=== PATIENT | male | born 1940 | race Caucasian/White ===

== ENCOUNTER → 2019-03-21 09:21 | Outpatient (BNVA) | payer MEDICARE, BC, SELFPAY | PROVIDERS: PCP Physician Assistant; Referring Provider Physician Assistant; Visit Provider Student in an Organized Health Care Education/Training Program | DX: M16.11 Unilateral primary osteoarthritis, right hip (principal); M16.12 Unilateral primary osteoarthritis, left hip | CPT/HCPCS: 99203 ==

== ENCOUNTER → 2019-05-19 08:59 | Outpatient (BNVA) | payer MEDICARE, BC, SELFPAY | PROVIDERS: PCP Physician Assistant; Referring Provider Physician Assistant; Visit Provider Student in an Organized Health Care Education/Training Program | DX: M16.11 Unilateral primary osteoarthritis, right hip (principal); M16.12 Unilateral primary osteoarthritis, left hip | CPT/HCPCS: 99213 ==

== ENCOUNTER → 2019-10-10 14:16 | Outpatient (BNVA) | payer MEDICARE, BC, SELFPAY | PROVIDERS: PCP Physician Assistant; Referring Provider Physician Assistant; Visit Provider Surgery | DX: K40.90 Unilateral inguinal hernia, without obstruction or gangrene, not specified as recurrent (principal) | CPT/HCPCS: 99203; 99213 ==

== ENCOUNTER 2019-10-21 00:39 | Outpatient (CLI) | payer MEDICARE, BC, SELFPAY ==
[2019-10-21 12:11] LABS: HCT 43.4 % (40.0-50.0); HGB 14.5 g/dL (13.5-17.5); Mean Corp. HGB Concentration 33.4 g/dL (32.0-36.0); Mean Corpuscular Hemoglobin 34.2 pg (27.0-33.0); Mean Corpuscular Volume 102.4 fL (80-95); Mean Platelet Volume 9.6 fL (8.0-11.0); Platelet Count 225 x1000/uL (130-400); RBC 4.24 m/cumm (4.50-6.00); RBC Distribution Width 13.8 % (11.8-14.1); White Blood Cell Count 8.14 k/cumm (4.4-10.8)
[2019-10-21 13:04] LABS: Anion Gap 9.4 mmol/L (3-11); BUN 22 mg/dL (7-18); CO2 23.6 mmol/L (21.0-32.0); CREATININE 0.91 mg/dL (0.70-1.30); Calcium 8.6 mg/dL (8.5-10.1); Chloride 106 mmol/L (98-107); Glucose 95 mg/dL (74-106); Potassium 4.3 mmol/L (3.5-5.1); Sodium 139 mmol/L (136-145)
== END 2019-10-21 00:59 ==
PROVIDERS: PCP Physician Assistant; Visit Provider Student in an Organized Health Care Education/Training Program
DX: M25.551 Pain in right hip (principal); M16.11 Unilateral primary osteoarthritis, right hip; Z01.818 Encounter for other preprocedural examination; Z01.812 Encounter for preprocedural laboratory examination
CPT/HCPCS: 36415; 80048; 85027; 86850; 86900; 86901

== ENCOUNTER 2019-10-21 11:41 | Outpatient (CLI) | payer MEDICARE, BC, SELFPAY ==
--- NOTE | 2019-10-21 10:30 | DI.RAD_ITS ---
EXAM: XR PELVIS AP CLINICAL HISTORY: preoperative planning TECHNIQUE: COMPARISON: No exams were available for comparison FINDINGS: Single AP view of the pelvis with marker ball was obtained. There are severe degenerative changes of both hips with marked loss of the cartilaginous joint spaces bilaterally, right greater than left, m arked subchondral sclerosis and cyst formation noted involving the acetabula and femoral heads, right greater than left. Prominent hypertrophic spurring of the acetabula and femoral heads by bilaterall y. IMPRESSION: Severe DJD both hips, right greater than left.
== END 2019-10-21 12:01 ==
PROVIDERS: PCP Physician Assistant; Referring Provider Physician Assistant; Visit Provider Physician Assistant
DX: M16.0 Bilateral primary osteoarthritis of hip (principal); Z01.818 Encounter for other preprocedural examination
CPT/HCPCS: 36415; 80048; 85027; 86850; 86900; 86901; 72170

== ENCOUNTER 2019-10-28 07:27 | Outpatient (CLI) | payer MEDICARE, BC, SELFPAY ==
[2019-10-28 19:27] LABS: COVID-19 RT-PCR UVMMC Result Negative (Negative)
== END 2019-10-28 07:47 ==
PROVIDERS: PCP Physician Assistant Medical; Visit Provider Student in an Organized Health Care Education/Training Program
DX: Z01.818 Encounter for other preprocedural examination (principal); Z03.818 Encounter for observation for suspected exposure to other biological agents ruled out
CPT/HCPCS: U0003

== ENCOUNTER 2019-11-01 06:05 | Observation (INO) | payer MEDICARE, BC, SELFPAY ==
[2019-11-01] VITALS (11 sets, daily range): BP systolic 94–154; BP diastolic 2–90; PULSE 51–80; RESP 12–19; TEMP 36.3–37.1; O2SAT 94–99
[2019-11-01] MEDS: Acetaminophen 500 MG TAB 1000 MG PO ×2 (06:32→13:08)
[2019-11-01] MEDS: Lactated Ringers 1,000 ML 80 ML IV ×2 (06:32→13:08)
[2019-11-01] MEDS: Celecoxib 200 MG CAP 400 MG PO (06:33)
--- NOTE | 2019-11-01 07:00 | DI.RAD_ITS ---
EXAM: XR HIP RT IN OR CLINICAL HISTORY: Degenerative joint disease of right hip. TECHNIQUE: 2D digital imaging was performed. COMPARISON: No exams were available for comparison FINDINGS: Fluoroscopy was provided in the OR for Dr. Tao. Hard copy images show placement of a right hip prosthesis. The alignment appears satisfactory. Fluoro time: 0.30 sec DATA REPOSITORY: RADIATION DOSE DELIVERED:
--- NOTE | 2019-11-01 07:29 | DSE_ITS ---
Date of service: 11/01/19 Time of Service: 13:52 DS: Diagnosis Discharge Diagnosis (1) Degenerative joint disease of right hip: Status: Chronic Discharge Plan Disposition Patient Disposition: HOME Condition: Good Discharge Details Reason For Visit: Right Hip DJD Admit Date/Time: 11/01/19 06:05 Admit Provider: Cayetano Tao Attending Provider: Cayetano Tao Primary Care Provider: Uriah Sanders Hospital Course Hospital Course: Patient was admitted to the medical/surgical floor following the procedure. The surgery was tolerated well without any notable medical, surgical, or anesthetic complications. Mobilization began postoperatively. He was voiding spontaneously. Vitals were stable. Physical therapy worked with the patient and was cleared for discharge home. No acute medical issues. Pain was controlled on oral regimen. Home Meds and New Rx's Prescriptions: New celecoxib 200 mg capsule 200 mg PO BID PRN (Reason: pain) Qty: 60 RF: 1 aspirin 81 mg tablet,delayed release (DR/EC) 81 mg PO BID Qty: 60 RF: 0 acetaminophen 500 mg tablet 1,000 mg PO Q8H PRN (Reason: pain) Qty: 90 RF: 3 pantoprazole 40 mg tablet,delayed release (DR/EC) 40 mg PO DAILY Qty: 30 RF: 0 oxycodone 5 mg tablet 5 mg PO Q6H PRN PRNQty: 12 RF: 0 Continued cholecalciferol (vitamin D3) 1,000 unit capsule 1,000 unit PO DAILY RF: 0 diclofenac sodium [Voltaren] 1 % Gel See Rx Instructions .ROUTE .COMPLEX RF: 0 Discontinued prednisone 5 mg tablet 5 mg PO DAILY Qty: 30 RF: 0 Discharge Instructions Additional Instructions: Dr. Tao's Total Hip Discharge Instructions Activity: The most important activity is to walk. You should try to take short walks a few times a day. You have no restrictions on movement or positioning, but do not try to force what you do. You will find some stiffness and weakness with hip flexion (lifting your knee). Do not try to strengthen this too early, continue to practice walking and stairs and this will come. - Outpatient physical therapy can be helpful to help return you to a normal gait and improve your flexibility and strength. This can start around 2 weeks. For most patients, it?s not necessary. Usually this is determined at the time of discharge or at the first post-operative visit. - You should wear the JESUS hose on both legs for 2 weeks. You may remove those at night. These prevent blood pooling and swelling. Dressing: Keep the surgical dressing in place for at least one week, although it may stay in place untill follow-up. It may get wet after 3 days but avoid soaking the dressing. If it gets wet, just lightly pat dry. Most people prefer to cover the dressing with some ClingWrap, Saran Wrap, to keep it dry. After the first week it may be removed if desired and then replaced with light gauze and tape or nothing. It is important to always keep some gauze or the dressing between skin folds, especially when you are sitting, so the incision is not folded over on itself at the belly fold. Medications: - You should take Tylenol and an anti-inflammatory Celebrex as your primary pain control medications. If the Celebrex is not covered or too expensive you may use Ibuprofen 600mg every 8 hours. - You have been prescribed a stronger pain medication Oxycodone for breakthrough pain, take as needed as prescribed. - You have also been prescribed a stomach acid reduction agent Pantoprozole to help reduce stomach acid and reflux. - You will be taking Aspirin 81mg twice a day for DVT prevention unless instructed otherwise. - If you have constipation you should take Colace or Miralax (both [id number]). It takes most people 3-4 days to have a bowel movement. Follow-up: 2 weeks. If you have any acute concerns or questions, please do not hesitate to contact the office at [phone]. You may contact Dr. Tao with any questions after hours through the hospital at [phone] or on his cell phone at [phone]. Referrals: Cayetano Tao MD [ [facility] STAFF PHYSICIAN] - Activity:: Activity as Tolerated Equipment/Supplies:: Walker Diet:: As Tolerated Discharge Orders Discharge Orders: Discharge Order (Routine); Ordered 11/01/19 Ordered By: Cayetano Tao DS: Summary Status at Discharge Functional status at discharge: uses cane/walker Overall status at discharge: patient is progressing back to baseline Mental Status: mental status grossly normal Speech and Movement: speech and movement normal Mood: congruent mood Affect: normal affect Exam Psych Mental Status: mental status grossly normal Speech and Movement: speech and movement normal Mood: congruent mood Affect: normal affect DS: Data Vitals/I&O Vitals and I&O: Vital Signs Temperature 36.7 C 11/01/19 06:05 Pulse 80 11/01/19 06:05 Pulse Rhythm Regular 11/01/19 06:05 Respiratory Rate 18 11/01/19 06:05 Respiratory Effort 11/01/19 06:05 Blood Pressure 154/85 H 11/01/19 06:05 Pulse Oximetry 98 11/01/19 06:05 Oxygen Delivery Method Room Air 11/01/19 06:05 Oxygen Flow Rate 0 11/01/19 06:05 Intake & Output 10/31/19 10/31/19 11/01/19 11:59 23:59 11:59 Weight 72.6 kg [facility] Medical History Chronic low back pain (Acute) Degenerative joint disease of left hip (Acute) Degenerative joint disease of right hip (Chronic) Generalized anxiety disorder (Acute) History of inguinal hernia (Acute) History of supraventricular tachycardia (Acute) As per Dr. Yadav note on 10/04/19 - he is not sure where this diagnosis came from Macrocytosis (Acute) Palpitations (Acute) As per note by Dr. 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
[2019-11-01] MEDS: ceFAZolin 2 GM/50 ML BAG IVPB (07:33)
[2019-11-01] MEDS: Bupivacaine 0.25% Pres-Free 30 ML VIAL (08:35)
[2019-11-01] MEDS: Ketorolac 30 MG/ML VIAL (08:37)
--- NOTE | 2019-11-01 10:24 | W.PM.OP ---
Date of service: 11/01/19 Time of Service: 09:24 Operative Note Operative Note DATE OF PROCEDURE: 11/01/19 PRE-OP DIAGNOSIS: Right Hip Osteoarthritis POST-OP DIAGNOSIS: same PROCEDURE: Right Anterior Total Hip Arthroplasty SURGEON: Cayetano Tao CUPOLA CHARGER INSULATION: Cari Rubin ANESTHESIA: spinal ESTIMATED BLOOD LOSS: 400 PATHOLOGY: none sent TOURNIQUET TIME: 0 COMPLICATIONS: None Patient was transported to: PACU Patient's condition: stable Implants: 1. Depuy [place] Acetabular Component, 54mm 2. Depuy Acetabular Liner, [id number] 3. Depuy Corail Coxa Vara Femoral Stem, Size 11 4. Depuy Altrx Ceramic Femoral Head, Size 36+1.5mm Indications: I have seen Kevin in clinic for symptoms of hip arthritis, confirmed with radiographic findings. Kevin has exhausted nonoperative methods and was having significant limitations in daily function and desired better function and less pain. I discussed the technical details of a hip replacement. I explained the risks of the procedure to include, but not limited to, bleeding, infection, pain, stiffness, fracture, damage to nerves and vessels, damage to muscles and tendons, loosening, instability, leg length inequality, need for repeat procedure, blood clot and cardiopulmonary demise. Despite these risks, he elected to proceed. Findings: There was significant signs of arthritis throughout the hip. Large osteophytes were present around the femoral neck. Procedure Description: Kevin was greeted in the preoperative holding area where the correct side was identified and marked. The consent was reviewed with the patient and signed. The history and physical was updated. All questions were answered. He was taken back to the operating room. A spinal anesthestic was then administered. The patient was placed into the supine position on the operating room table. The patient was then positioned onto the ARCH table. Both feet were wrapped with Webrill cotton wrap along with Coban. The feet were placed in specialized boots for the ARCH table, well seated within the boot and secured. SCDs were applied. The patient was then slid down onto a peroneal post and the nonoperative leg was secured in a leg malave attached to the table. The operative side was placed into the ARCH table attachment and bed height and positioning was secured. A preoperative AP pelvis was obtained to serve as a reference for determining leg lengths. Prophylactic antibiotics in the form of Cefazolin were administered. 1g of Tranxemic Acid was given intravenously within 30 minutes of incision. The right leg was then prepped with Chloraprep and draped in a standard fashion. A second prep with Chloraprep was performed prior to placement of a shower-curtain type drape with Iodine impregnated skin protection. A timeout to confirm correct identity, side and site, procedure, allergies, anesthesia, and medical concerns was performed. An obliquely oriented incision was made starting lateral to the ASIS and running distal over the Tensor Fascia Savi (TFL) muscle belly toward the fibular head, approximately 10cm. The skin and soft tissue was dissected sharply, through James?s fascia, and to the fascia of the TFL. With the fascia and superior border of the IT band identified, the fascia was incised with a new knife just above any perforators from the IT band. The TFL muscle belly was bluntly dissected away from the fascia and moved laterally. The fat between TFL and rectus was identified to ensure the dissection was not within the TFL. Blunt dissection created space between abductors and the capsule and retractor was placed over the lateral femoral neck. The fibers of the rectus femoris tendon were identified and these were freed from the anterior capsule. A second cobra retractor was placed around the medial femoral neck. The TFL was further retracted laterally to show the deep fascia. Careful dissection through this layer identified three main crossing vessels of the lateral femoral circumflex. These were cauterized in multiple locations and then cut without any noticeable bleeding. The TFL was further released bluntly from the deep fascia to expose anterior hip capsule and fat The Bal orthopaedic retractor was then placed beneath the TFL and against sartorius and medial soft tissues to protect and retract the soft tissues. A T-capsulotomy was then performed starting at the superior lateral acetabulum and moving distally to the intertrochanteric ridge. These capsular flaps were tagged with a No. 1 Ethibond and elevated from within. The capsular flaps were released to the shoulder of the lateral neck and to the lesser trochanter to give excellent visualization of the proximal femur. A neck osteotomy was performed using an oscillating saw based on preoperative templates. This cut started in the shoulder and of the lateral neck and exited medially. The saw was at all times directed medially to avoid injury to the greater trochanter. 6cm of traction was applied to the leg and the osteotomy opened. The femoral head was removed with a corkscrew, making sure to protect the TFL on its exit. This was measured on the back table to determing the starting reamer size. Portions of the rectus obscuring visualization were minimally elevated off the superior acetabulum. An anterior retractor was placed over the anterior wall between capsule and labrum and attached to the Gripper retraction system. A posterior retractor was placed similarly. This provided excellent visualization. The contents of the cotyloid fossa were removed with electrocautery and the labrum was removed with a knife. There was significant chondromalacia of the superior acetabulum. Acetabular reaming began with a 50mm reamer. This first reaming was directed anterior to posterior and medial to get down to the true floor. This was inspected and reamed until the true floor was reached. The anterior retractor was then released and entry and exit was provided by traction on the capsular flaps. I then reamed sequentially up to a 54mm reamer where good fit was obtained. The larger reamers were oriented based on anatomical reference of the anterior and lateral barclay to ensure proper abduction and anteversion. Positioning and size was confirmed with the fluoroscopy. A 54mm Depuy [place] acetabular component was selected. The deep tissues were irrigated. The acetabular component was then impacted in a position of about 40-45 degrees of abduction and 15-20 degrees of anteversion, using the patient?s anatomy as the ultimate landmark. Fluoroscopy was used to confirm this. There was excellent woodwind instrument repairer of the acetabular component and the inserting handle was removed. The acetabular liner, Depuy [id number] polyethylene liner, was inserted and lined up with the tines of the acetabular component. There was no soft tissue interposition. The liner was then impacted into position and confirmed to be well-seated. A portion of the amos-articular cocktail was then injected around the acetabulum into the capsule and periosteum. This cocktail consisted of 50cc of 0.25% Bupivicaine and 20cc of Exparel, expanded to a total of 120cc. Traction was released from the femur. The leg was rotated to 120 degrees. Any remaining medial capsule was released until the lesser trochanter was easily palpable. A Fairchild retractor was placed medially. The lateral capsule was further released into the shoulder to allow access to the greater trochanter. A Fairchild retractor was placed over the greater trochanter which allowed the trochanter to flip in front of the capsule for excellent exposure. The leg was brought down into maximal extension and 20 degrees of adduction while ensuring there was no impingement on the acetabulum. Any remnant capsule within the trochanter was released. Piriformis and obturator externis were identified and protected. There was excellent access to the proximal femur. The lateral neck remnant was removed with a rongeur. A blunt canal probe was used to identify the canal and trajectory for later broaching. A box osteotome initiated the broach course. A small curved rasp and a curved curette were used to work laterally. Broaching then began with a size 8 Corail broach. This was inserted manually around the trochanter and into the canal before mallet blows. The broach was seated to a few millimeters below the cut level based on the neck cut and the preoperative template. Sequential broaching was continued with the Codelearnse pneumatic broaching device until a tight fit was obtained with good rotational control of the femur. A trial coxa vara neck was inserted along with a +1.5 trial head. The leg was brought out of extension and adduction and then reduced with traction and internal rotation. The leg was stable anteriorly in a position of 30 degrees of extension and 90 degrees of external rotation. Fluoroscopy was used to ensure there was no fracture and the stem was seated well. Leg lengths were checked with an AP pelvis and pelvic reference points. [employer] navigation system was used to confirm appropriate positioning and leg length and offset. Once content with the desired offset and leg lengths, the leg was brought back into extension, external rotation and adduction. The periosteum and surrounding tissue was injected with remaining portion of the amos-articular cocktail. The proximal femur was irrigated as well as the deep tissues. The Depuy Corail Coxa Vara stem, size 11, was then manually inserted into the proximal femur making sure to control rotation. It was then malleted into position with light blows, giving breaks to allow bone expansion and decrease risk of fracture. The selected Depuy Altrx Ceramic Head, size 36+1.5mm, was then placed onto the clean and dry trunnion and secured with impaction onto the tapered fit. The leg was brought back out of extension and adduction and reduced with traction and internal rotation. Stability was confirmed with no shuck at 90 degrees of external rotation and 30 degrees of extension. No impingement through range of motion arc. Final x-ray images were obtained with fluoroscopy to confirm adequate positioning and no intraoperative fracture. The deep tissues were thoroughly irrigated with Irrisept chlorhexadine solution. The second dose of TXA 1g was administered intravenously.The capsule was then reapproximated with the previously placed Ethibond sutures. The TFL fascia was finally closed with a No. 2 Stratafix, barbed suture. Deep tissues were then reapproximated with 0 Vicryl and a running 2-0 Vicryl. The skin was closed with a running 4-0 Monocryl in a subcuticular fashion. This was reinforced with skin glue. A Mepilex silver dressing was applied. At the end of the case, all counts were correct. Kevin was transferred to the hospital bed without difficulty and suffering no apparent complication. Kevin has a good prognosis. Physical therapy will start today and without restrictions, weight-bearing as tolerated. Aspirin 81mg BID will be used for DVT prophylaxis.
--- NOTE | 2019-11-01 11:20 | IN_ITS ---
Date of service: 11/01/19 Time of Service: 10:45 PT Notes Visit Reasons: Right Hip DJD Inpatient Physical Therapy Evaluation Date: 11/01/2019 Referring Doctor: Dr. Tao PT Orders: PT CONSULT: s/p right DOE Precautions: fall, standard Patient Profile/Admitting Diagnosis: Patient admitted s/p right DOE, anterior approach, post op day 0. 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 Yadav note on 10/04/19 - he is not sure where this diagnosis came from Macrocytosis (Acute) Palpitations (Acute) As per note by Dr. Yadav (Cardiology at [facility]) - states palpitations have mostly resolved with lifestyle modifications Raised prostate specific antigen (Acute) Squamous cell carcinoma (Acute) Left upper arm Social History/Home Situation: Patient lives in a single level home with 0 JUAN. He lives with his and their 18 year old son. He is independent at baseline, without use of assistive device. Equipment Owned/DME: none Subjective: Kevin states that he is feeling good. He denies dizziness, and reports good sensation in his leg. He feels ready to get up and try walking. Objective: General Observation: Resting in bed with IV in RUE. No additional lines. Mental Status: A & Ox3 Pain: 0/10 ROM: Right Upper Extremity: WFL Left Upper Extremity: WFL Right Lower Extremity: not assessed due to post-op status Left Lower Extremity:WFL Strength: Right Upper Extremity: WFL Left Upper Extremity: WFL Right Lower Extremity: Patient is able to demonstrates 3/5 or greater quad strength and ankle DF. Left Lower Extremity: Hip flexion 4+/5. Quads 5/5. Ankle DF 4/5. Sensation: intact to light touch distally Bed Mobility/Transfers: supine-sit: supervision sit-stand: CGA stand-sit: CGA Gait: Patient ambulates 6' with FWW and CGA. He requires min A for technique and equipment management. He reports moderate dizziness as he ambulates, but was able to safely transition to chair without any apparent difficulty. Reports resolution of dizziness after seated rest x 1 minute. Deferred on further ambulation at this time. Balance: Static Sitting: Normal Dynamic Sitting: Good Static Standing: Fair Dynamic Standing: Fair Special Tests: Mobility Limitations Standardized Measure [facility] AM-PAC 6 clicks Basic Mobility Inpatient Short Form: Raw Score: 19 CMS Score: 42 % deficit Informed Consent/Education: Patient instructed in purpose of PT consult and plan of care. Assessment: Patient is a 79 year old male referred to physical therapy services with the diagnosis of right DOE, post op day 0. Patient presents with clinical signs and symptoms consistent with post-operative status, as demonstrated by the following impairment level findings: 1. Decreased activity tolerance 2. Decreased RLE strength Impairments are contributing to the following functional limitations: 1. Decreased tolerance to household distance and community ambulation Patient is assessed as Low 60984 complexity based on the following: History: 79 year old male presenting post op day 0 after right DOE. No significant complicating factors. He demonstrated good safety and technique, despite limitations in activity tolerance due to his acute post-op status. Examination: functional limitations as noted above Presentation: stable Decision Making: low complexity Goals: Goals X1 week 1. Supine-Sit : supervision 2. Sit-Supine: supervision 3. Sit-Stand : supervision 4. Stand-Sit : supervision 5. Bed-Chair : supervision with FWW 6. Chair-Bed: supervision with FWW 7. Gait : supervision with FWW x 75' Plan of Care/Treatment Plan: 1-2x/day, 7 days/week x 1 week. Plan of care has been reviewed with the MANAGER DEVELOPMENT providing the service under Physical Therapy direction. Initiate Physical Therapy intervention for strengthening, bed mobility, transfers, gait, stairs, balance training, use of assistive device. DISCHARGE RECOMMENDATIONS:Home. Will need FWW issued prior to discharge. TREATMENT CODE/TIME: 10:45-11:05 ([id number]) Laura Rodriguez, PT, DPT [facility]
[2019-11-01] MEDS: ceFAZolin 1 GM/50 ML BAG IVPB (13:08)
[2019-11-01] MEDS: Normal Saline Flush 10 ML SYR IV (13:41)
--- NOTE | 2019-11-02 08:47 | PT.INDS ---
Date of service: 11/02/19 Time of Service: 08:47 PT Notes Visit Reasons: Right Hip DJD Date: 11/02/2019 Treatment Date: 11/01/19 Referring Doctor: Dr. Tao PT Orders: PT CONSULT: s/p right DOE Precautions: fall, standard THIS DOCUMENT SERVES A SUMMARY OF CARE. NO PT SERVICES WERE PROVIDED ON THIS DATE. Patient Profile/Admitting Diagnosis: Patient admitted s/p right DOE, anterior approach. He was seen for a single PT session prior to discharge home. 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 Yadav note on 10/04/19 - he is not sure where this diagnosis came from Macrocytosis (Acute) Palpitations (Acute) As per note by Dr. Yadav (Cardiology at [facility]) - states palpitations have mostly resolved with lifestyle modifications Raised prostate specific antigen (Acute) Squamous cell carcinoma (Acute) Left upper arm Social History/Home Situation: Patient lives in a single level home with 0 JUAN. He lives with his and their 18 year old son. He is independent at baseline, without use of assistive device. Equipment Owned/DME: none Subjective: none obtained Objective: ROM: Right Upper Extremity: WFL Left Upper Extremity: WFL Right Lower Extremity: not assessed due to post-op status Left Lower Extremity:WFL Strength: Right Upper Extremity: WFL Left Upper Extremity: WFL Right Lower Extremity: Patient is able to demonstrates 3/5 or greater quad strength and ankle DF. Left Lower Extremity: Hip flexion 4+/5. Quads 5/5. Ankle DF 4/5. Sensation: intact to light touch distally Bed Mobility/Transfers: supine-sit: supervision sit-stand: CGA stand-sit: CGA Gait: Patient ambulated 6' with FWW and CGA. He requires min A for technique and equipment management. He reports moderate dizziness as he ambulates, but was able to safely transition to chair without any apparent difficulty. Reported resolution of dizziness after seated rest x 1 minute. Balance: Static Sitting: Normal Dynamic Sitting: Good Static Standing: Fair Dynamic Standing: Fair Assessment: Patient is a 79 year old male referred to physical therapy services with the diagnosis of right DOE. He was seen for 1 PT session for gait training, and demonstrated good safety and mobility. He was able to be discharged home after PT session, and will benefit from PT intervention on outpatient basis to continue progressing toward established goals. Goals: Goals X1 week 1. Supine-Sit : supervision (met) 2. Sit-Supine: supervision (not met) 3. Sit-Stand : supervision (not met) 4. Stand-Sit : supervision (not met) 5. Bed-Chair : supervision with FWW (not met) 6. Chair-Bed: supervision with FWW (not met) 7. Gait : supervision with FWW x 75' (not met) Plan of Care/Treatment Plan: Discharge from PT in acute care setting DISCHARGE RECOMMENDATIONS:Home. FWW, outpatient PT TREATMENT CODE/TIME: none Laura Rodriguez, PT, DPT [facility]
== END 2019-11-01 16:00 | disposition home or self-care (01) ==
LOC: PDS 09:40 → MS 09:41
PROVIDERS: Admitting Provider Student in an Organized Health Care Education/Training Program; PCP Physician Assistant Medical; Visit Provider Student in an Organized Health Care Education/Training Program
PROC: 0SR904A Replacement of Right Hip Joint with Ceramic on Polyethylene Synthetic Substitute, Uncemented, Open Approach (ICD-10-PCS; CPT 27130; principal; 2019-11-01 07:30)
DX: M16.11 Unilateral primary osteoarthritis, right hip (principal); M25.551 Pain in right hip; Z96.641 Presence of right artificial hip joint
CPT/HCPCS: 27130; C1776; 97161; NC; 73501; G0378; J0360; J0690; J1100; J1885; J2001; J2250; J2405; J3010

== ENCOUNTER 2019-11-14 08:28 | Outpatient (CLI) | payer MEDICARE, BC, SELFPAY ==
--- NOTE | 2019-11-14 08:00 | DI.RAD_ITS ---
EXAM: XR HIP RT COMPLETE AP PELVIS INDICATION: 1st post op. COMPARISON: CR XR PELVIS AP from 10/21/2019 RF XR HIP RT IN OR from 11/01/2019 TECHNIQUE: 2D digital imaging was performed. FINDINGS: There are stable postsurgical changes of a right total hip replacement. The orthopedic hardware appe ars in good position. No acute fracture or dislocation is seen. Moderate degenerative changes are s een in the left hip characterized by joint space narrowing, subchondral sclerosis and marginal osteop hytes. Surgical clips are seen inferior to the pelvis. Soft tissues are otherwise unremarkable. IMPRESSION: Stable right THR. DATA REPOSITORY: RADIATION DOSE DELIVERED:
== END 2019-11-14 08:48 ==
PROVIDERS: PCP Physician Assistant Medical; Referring Provider Physician Assistant Medical; Visit Provider Student in an Organized Health Care Education/Training Program
DX: Z47.1 Aftercare following joint replacement surgery (principal); Z96.641 Presence of right artificial hip joint
CPT/HCPCS: 73502

== ENCOUNTER → 2019-12-15 10:43 | Outpatient (BNVA) | payer MEDICARE, BC, SELFPAY | PROVIDERS: PCP Physician Assistant Medical; Referring Provider Physician Assistant Medical; Visit Provider Student in an Organized Health Care Education/Training Program | DX: Z96.641 Presence of right artificial hip joint (principal); Z47.1 Aftercare following joint replacement surgery ==

== ENCOUNTER → 2020-01-16 13:11 | Outpatient (BNVA) | payer MEDICARE, BC, SELFPAY | PROVIDERS: PCP Physician Assistant Medical; Referring Provider Physician Assistant Medical; Visit Provider Student in an Organized Health Care Education/Training Program | DX: Z96.641 Presence of right artificial hip joint (principal); Z47.1 Aftercare following joint replacement surgery; I25.2 Old myocardial infarction; Z95.818 Presence of other cardiac implants and grafts ==

== ENCOUNTER 2020-03-08 13:06 | Outpatient (CLI) | payer MEDICARE, BC, SELFPAY ==
[2020-03-10 10:18] LABS: SARS-CoV-2 RNA Not Detected (NotDetected); SARS-CoV-2 RNA Source Nasal/Nares
== END 2020-03-08 13:26 ==
PROVIDERS: Surgery; PCP Physician Assistant Medical; Visit Provider Nurse Practitioner
DX: Z01.818 Encounter for other preprocedural examination (principal)
CPT/HCPCS: U0003

== ENCOUNTER 2020-12-10 09:51 | Outpatient (CLI) | payer MEDICARE, BC, SELFPAY ==
--- NOTE | 2020-12-10 09:15 | DI.RAD_ITS ---
Exam(s) XR HIP RT AP LAT ONLY EXAM: XR HIP RT AP LAT ONLY CLINICAL HISTORY: ANNUAL F/U R DOE. TECHNIQUE: 2D digital imaging was performed. COMPARISON: CR XR HIP RT COMPLETE AP PELVIS from 11/14/2019 FINDINGS: There is continued satisfactory position alignment of components of the right hip prosthesis. No fra cture or loosening evident. IMPRESSION: DATA REPOSITORY: RADIATION DOSE DELIVERED:
== END 2020-12-10 09:52 | disposition home or self-care (01) ==
LOC: DIORS 09:52
PROVIDERS: PCP Physician Assistant Medical; Referring Provider Physician Assistant Medical; Visit Provider Student in an Organized Health Care Education/Training Program
DX: Z47.1 Aftercare following joint replacement surgery (principal); Z96.641 Presence of right artificial hip joint
CPT/HCPCS: 99212; 73502

== ENCOUNTER → 2021-01-07 08:56 | Outpatient (BNVA) | payer MEDICARE, BC, SELFPAY | PROVIDERS: PCP Physician Assistant Medical; Referring Provider Physician Assistant Medical; Visit Provider Surgery | DX: K40.90 Unilateral inguinal hernia, without obstruction or gangrene, not specified as recurrent (principal); G47.39 Other sleep apnea; Z96.641 Presence of right artificial hip joint | CPT/HCPCS: 99203; 99214 ==

== ENCOUNTER 2021-01-21 02:53 | Outpatient (CLI) | payer MEDICARE, BC, SELFPAY ==
[2021-01-21 10:35] LABS: Source Nasal/Nares
[2021-01-21 13:33] LABS: COVID-19 PCR Negative (Negative)
== END 2021-01-21 02:54 | disposition home or self-care (01) ==
LOC: LBO 02:54
PROVIDERS: PCP Physician Assistant Medical; Visit Provider Surgery
DX: Z20.822 Contact with and (suspected) exposure to COVID-19 (principal); Z01.818 Encounter for other preprocedural examination
CPT/HCPCS: 87635

== ENCOUNTER 2021-01-22 08:41 | Day surgery (SDC) | payer MEDICARE, BC, SELFPAY ==
[2021-01-22] VITALS (8 sets, daily range): BP systolic 116–149; BP diastolic 64–81; PULSE 51–57; RESP 14–18; TEMP 36.1–36.7; O2SAT 95–100; BMI 23.8
[2021-01-22] MEDS: Gabapentin 300 MG CAP PO (09:44)
[2021-01-22] MEDS: Acetaminophen 500 MG TAB 1000 MG PO (09:44)
[2021-01-22] MEDS: Lactated Ringers 1,000 ML 80 ML IV (09:55)
--- NOTE | 2021-01-22 10:06 | W.ANESPRE ---
General Info Date of Service Date Performed: 01/22/21 Height: 5 ft 9 in Weight: 73 kg Body Mass Index (BMI): 23.8 Surgical Procedure: Operation Date: 01/22/21 10:40 Proposed Procedures Side Surgeon p Herniorrhaphy Inguinal Right Amanda Russell, Meds Allergies and Home Medications Allergies Allergy/AdvReac Type Severity Reaction Status Date / Time sertraline AdvReac fast heart Verified 01/22/21 09:12 rate, dry mouth, sweating, headache Home Medication Medication Instructions Recorded acetaminophen 1,000 mg PO Q8H PRN #90 tab 11/01/19 nitroglycerin 0.4 mg sublingual 0.4 mg SUBLINGUAL ONCE PRN 08/30/20 tablet aspirin 81 mg tablet,delayed 81 mg PO DAILY 12/10/20 release metoprolol succinate 100 mg 50 mg PO DAILY tab 01/07/21 tablet,extended release 24 hr pravastatin 10 mg PO DAILY 01/18/21 Current Visit Medications: Current Medications Generic Name Dose Route Start Last Admin Trade Name Freq PRN Reason Stop Dose Admin Acetaminophen 1,000 mg 01/22/21 06:00 01/22/21 09:44 Acetaminophen 500 Mg Tab PO 01/22/21 16:00 1,000 mg PREOP BOLA Administration Gabapentin 300 mg 01/22/21 06:00 01/22/21 09:44 Gabapentin 300 Mg Cap PO 01/22/21 16:00 300 mg PREOP BOLA Administration Ringer's Solution 1,000 mls @ 80 mls/hr 01/22/21 06:00 IV 02/20/21 23:59 INFUSION BOLA Cefazolin Sodium/Dextrose 1 gm in 50 mls @ 100 mls/hr 01/22/21 06:00 Ancef Duplex IVPB 01/22/21 16:00 PREOP BOLA IV Miscellaneous Supplies 1 each 01/22/21 06:00 Iv Access IV 02/20/21 23:59 DIRECTED BOLA Sodium Chloride 0 ml 01/22/21 06:00 Normal Saline Flush 10 Ml Syr IV 02/20/21 23:59 PRN PRN Sodium Chloride 0 ml 01/22/21 06:00 Normal Saline 10 Ml Vial IJ 02/20/21 23:59 DIRECTED PRN Sterile Water 0 ml 01/22/21 06:00 Water,Injection,Sterile 10 Ml Vial IJ 02/20/21 23:59 DIRECTED PRN [facility] Active Problems Active Problems: Problem Status Onset Code Right inguinal hernia K40.90 STEMI (ST elevation myocardial infarction) I21.3 DNI (do not intubate) Z78.9 DNR (do not resuscitate) Z66 Grief F43.21 Fatigue R53.83 Hyperglycemia R73.9 Chronic cough R05 Osteoarthritis of hip M16.9 Abdon-Anderson respiration R06.3 Mixed sleep apnea G47.39 Caregiver stress syndrome R45.7 Status post total hip replacement, 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 Yadav Caregiver stress syndrome Cervical radiculopathy Abdon-Anderson respiration Chronic cough Chronic low back pain Degenerative joint disease of left hip Degenerative joint disease of right hip DNI (do not intubate) DNR (do not resuscitate) Elevated liver enzymes Fatigue Generalized anxiety disorder Grief History of inguinal hernia Right History of supraventricular tachycardia As per Dr. Yadav note on 10/04/19 - he is not sure where this diagnosis came from Hyperglycemia Macrocytosis Mixed sleep apnea Osteoarthritis of hip Palpitations As per note by Dr. Yadav (Cardiology at [facility]) - states palpitations have mostly resolved with lifestyle modifications Raised prostate specific antigen Shoulder joint pain Squamous cell carcinoma Left upper arm STEMI (ST elevation myocardial infarction) Supraventricular tachycardia Thoracic back pain Vitamin D deficiency Surgical History Surgical History H/O cardiac catheterization (~11/2019) History of breast lump/mass excision Lump removed from left breast History of cataract surgery History of circumcision History of colonoscopy S/P tonsillectomy and adenoidectomy Status post total hip replacement, right (11/01/19) Status post vasectomy Tobacco Smoking/Tobacco Use Status: Never Alcohol Alcohol Intake: never Substance Use Substance use: Never Substance use type: does not use Vital Signs and Lab Results Vital Signs Most Recent Vital Signs in EMR: Most Recent Vital Signs Temp Pulse Resp BP Pulse Ox 36.7 C 56 L 16 149/79 H 100 01/22/21 09:15 01/22/21 09:15 01/22/21 09:15 01/22/21 09:15 01/22/21 09:15 Lab Results Blood Type / Crossmatch: No Data to Display Complete Blood Count: No Data to Display Complete Metabolic Panel: No Data to Display Liver Function Panel: No Data to Display Coagulation Panel: No Data to Display Cardiac Panel: No Data to Display Arterial Blood Gas: No Data to Display Venous Blood Gas: No Data to Display Pancreas Panel: No Data to Display Thyroid Panel: No Data to Display Infectious Disease: Coronavirus (COVID-19)(PCR) Negative (Negative) 01/21/21 09:15 01/21/21 Coronavirus 2019 Source Nasal/Nares 01/21/21 09:15 01/21/21 Blood Cultures: No Data to Display Toxicology Panel: No Data to Display Anesthesia Assessment and Plan Anesthesia History Personal History: No History of Anesthesia Complications Family History: No Family History of Anesthesia Complications Exercise Tolerance Exercise Tolerance: Metabolic Equivalents>4 Pertinent Negatives Pertinent Negatives: No Symptoms of GERD, No Major Cardiovascular Symptoms or Complaints, No Major Pulmonary Symptoms or Complaints and No History of CVA/TIA Cardiac & Pulmonary Exam Cardiac Exam: Normal S1/S2 Heart Sounds Pulmonary Exam: Clear Bilateral Breath Sounds Airway Exam Known Difficult Airway: No Mallampati Class: 2 Mouth Opening: Normal (> 3cm) Thyromental Distance: Greater than 3 cm Facial Hair: Full Yun (Lower beards ) Neck Range of Motion: Full ROM Neck Circumference: Normal Teeth Condition: Normal Dentition ASA Classification ASA Score: ASA 3 Emergency Case?: No NPO Status NPO Status: NPO Clears >2 hours, Solids >8 hours Anesthesia Plan Resuscitation Status: DNR/DNI Suspended During Perioperative Period Anesthesia Technique: General Anesthesia Airway Planned: Endotracheal Tube Pain Management: Surgeon and patient request nerve block Monitors Used: Standard Monitors
[2021-01-22] MEDS: ceFAZolin 1 GM/50 ML BAG IVPB (11:06)
[2021-01-22] MEDS: Bupivacaine 0.25% Pres-Free 30 ML VIAL (12:11)
--- NOTE | 2021-01-22 12:22 | ROE_ITS ---
Date of service: 01/22/21 Time of Service: 12:22 Operative Note Operative Note DATE OF PROCEDURE: 01/22/21 PRE-OP DIAGNOSIS: open right inguinal hernia repair. omentectomy POST-OP DIAGNOSIS: same PROCEDURE: open repair w/ mesh omentectomy SURGEON: Amanda Holland SENIOR JAVASCRIPT ENGINEER: Kathy Castellanos ANESTHESIA TYPE: Local By Surgeon, General LMA/ETT and Primary Nerve Block Refer to Anesthesia Record ESTIMATED BLOOD LOSS: 10 PATHOLOGY: none sent COMPLICATIONS: None Patient was transported to: same day Patient's condition: stable Implants: see RN notes XL plug Procedure Description: INDICATIONS: The pt is here today for surgery regarding symptomatic right inguinal hernia that has failed outpatient conservative medical management and he is here today for repair. Informed consent was obtained, explaining risks and benefits of the procedure including but not limited to bleeding, infection, pneumonia, blood clots, chronic pain, chronic numbness, damage to testicle resulting in removal, recurrence of hernia, reaction to Mesh necessitating removal, and other unforetold complications, and complications of anesthesia-which were addressed by the SUPERVISOR PAINT ROLLER COVERS. The patient is marked in preOp prior to the procedure DESCRIPTION OF PROCEDURE: The pt is then brought to the operative room suite. Anesthesia was administered per the Department of Anesthesia. A nerve block was performed by anesthesia under US guidance. The patient was prepped and draped in the usual sterile fashion using ChloraPrep scrub solution. Pause for the cause was done. He did receive preop IV antibiotics, and 30 mL of .25% Marcaine w/ epinephrine was used for local anesthetization. A #12 blade was used to make an incision over the external ring. Electrocautery used to provide hemostasis and dissect down to the fascia. The fascia was pretty much obliterated and there was nothing to open. The cord is elevated. The nerve was not identified. There is not a cord lipomas. Electro-cautery is used to provide hemostasis. A Mariya drain was placed around the cord to assist in mobilization. The cord was exp lored. There was is 5 hernia sac on the cord. There is no direct hernia pushing through the floor. The hernia sac is dissected off the cord using a combination of blunt dissection and electrocautery. Electrocautery is used to provide hemostasis. This is dissected off the cord structures. The sace does contain omentum. Considerable time was spent identifying the edges of the hernia sac and dissecting the vessels and the vas deferens off of the sac. We did end up removing the is sac entirely. His entire omentum is within the sac. It is not going to be feasible to try to reduce all of this back into the abdomen. And a three quarters omentectomy was done using the LigaSure. Remainder of the omentum was then returned to the abdominal cavity. The hernia sac is than inverted and r the abdominal cavity. A XLsize plug is than inserted into the defect through the internal ring, and over sewn to tighten up the ring with 2-0 vicryl. Please see RN notes from Lot number of the Bard mesh patch/plug. The cord structures are still able to freely move through the ring itself. The patch was then placed onto the floor, and using 2-0 Vicryl, sewn into the pubic tubercle and the shelving portions of the inguinal ligament, in the standard Lichenstein fashion. The tails of the mesh are brought around the cord, sewn together w/ 2-0 Vicryl, and tucked under the external oblique. The wound was copiously irrigated. There was no bleeding noted. The drain was removed. All structures are returned to normal anatomical position. The nerve is not sewn into the mesh, nor caught up in any sutures. The external oblique is re-approximated using 2-0 vicryl in a running fashion. Deep tissue was approximated with 3-0 Vicryl in a running fashion, and skin was approximated with 4-0 Monocryl in a running subcuticular fashion. Skin glue and sterile dressings are applied. The patient tolerated the procedure without complications to recovery in stable condition. AMANDA HOLLAND, DO
--- NOTE | 2021-01-22 12:29 | PDOC.DSDIS_ITS ---
Discharge Plan Disposition Patient Disposition: HOME Condition: Good Discharge Details Reason For Visit: right inguinal hernia repair Attending Provider: Amanda Russell Primary Care Provider: Uriah Sanders Home Meds and New Rx's Prescriptions: New tramadol [Ultram] 50 mg tablet 50 mg PO Q6H PRNQty: 10 RF: 0 ibuprofen 600 mg tablet 600 mg PO Q6H PRNQty: 90 RF: 0 Continued aspirin [Adult Aspirin Regimen] 81 mg tablet,delayed release (DR/EC) 81 mg PO DAILY RF: 0 nitroglycerin 0.4 mg tablet, sublingual 0.4 mg sublingual ONCE PRNRF: 0 metoprolol succinate 100 mg tablet extended release 24 hr 50 mg PO DAILY RF: 0 acetaminophen 500 mg tablet 1,000 mg PO Q8H PRN (Reason: pain) Qty: 90 RF: 3 pravastatin 10 mg tablet 10 mg PO DAILY RF: 0 Discharge Instructions Additional Instructions: Dr. Russell HERNIA REPAIR ? POSTOPERATIVE INSTRUCTIONS Patients who have this type of surgery can usually be expected to return to work within two weeks and have minimal amounts of discomfort. ? ACTIVITY: The day of surgery should be spent resting. However, you can be up for short periods of time, I.E., going to the bathroom or kitchen. Avoid lifting or straining. On the day following surgery, you can be up and about as desired. ? LIFTING: Restrict your lifting to no more than five (5) pounds for the first week following surgery. For the second week after surgery, don?t lift more than ten pounds. We will decide when you are done with restrictions and when you can return to work, at your follow-up appointment. No sexual activity for two we eks. ? DIET: There are no dietary restrictions following surgery. However, you may want to start with small amounts of liquids to avoid nausea the day of surgery. ? INCISION CARE: You will notice purple skin glue closing the incision. Do not peel this off- it will wear off on its own. After 24 hours you may shower. The dressing may be replaced for comfort, but is not necessary. An ice bag may be applied to the incision for 72 hours following surgery. ? SIGNS OF INFECTION: It is not unusual to have some black and blue discoloration of the skin around the incision, but also scrotum and penis. It will slowly disappear. If you have any increased redness, drainage, fever (above 100 degrees), please contact your doctor for an examination. ? DISCOMFORT: You may expect to have some mild discomfort at the incision sight. If severe pain develops you should contact your doctor for further instructions. ? URINATION: Patients who have surgery occasionally have problems urinating. If you experience problems and are not able to urinate within 6 hours following your surgery, please call your doctor immediately or go to your nearest Emergency Room for evaluation. ? DRIVING: NO driving for three (3) days after surgery, or if you are still taking narcotic pain medication. ? MEDICATIONS: Alternate Tylenol 1000mg by mouth every 8 hours and Ibuprofen 600mg every 6 hours. Make sure you take ibuprofen with food and not on an empty stomach. Take the Tylenol and ibuprofen continuously for the first 72hrs- not just when you have pain. Use the tramadol for breakthrough pain. Use ICE! Tw enty minutes on, and then off, continuously for the first 72hours. If you are taking narcotic pain medication, follow the instructions on the label and do not drive. Pain medications can make you very constipated. Make sure you are moving your bowels daily. If not, take Miralax, milk of magnesia or magnesium citrate. Anesthesia makes you very constipated. Take a dose of milk of magnesia the mor dulce maria after surgery. ? REPORT: Unusual swelling, severe pain, unresolved nausea, signs of infection, or difficulty in urination to your surgeon. Follow up in clinic with Dr. Russell in 1-2 weeks. [phone] -do NOT take aspirin while taking ibuprofen. Hold the aspirin for 5 days. -expect to be very black/blue and swollen Activity:: see above Remove Dressings/Wound Care:: 24 hours Shower/Bathe:: 24 hours Diet:: see above Discharge Orders Discharge Orders: Discharge Order (Routine); Ordered 01/22/21 Ordered By: Amanda Russell DS: Diagnosis Discharge Diagnosis (1) Right inguinal hernia: Status: Acute
--- NOTE | 2021-01-22 12:59 | W.ANESNERVE ---
Nerve Block Single Injection Procedure Date and Time Date Performed: 01/22/21 Procedure Start: 10:50 Location Where Procedure Performed Procedure Location: Operating Room Procedure Stop: 11:10 Reason Performed: Postoperative Analgesia Requesting Provider: Amanda Russell Timeout Performed Timeout Performed: Yes Monitoring Used ECG, Blood Pressure, SpO2, ETCO2 and See EMR for corresponding vital signs Sterility Sterility: Hand Hygiene, Surgical Cap, Surgical Mask, Sterile Gloves and Chlorhexidine Sedation Given During Procedure Sedation Given (Indicate Dose Given): No Sedation given Patient Mental Status Patient Mental Status: Performed under general anesthesia Nerve Block 1st Nerve Block: Laterality: Right Block Type: TAP Unilateral Needle / Catheter Used: 100mm SonoPlex II Local Anesthetic Bolus (Indicate Dose Given): Bupivacaine 0.25% Dose:: 10 cc and Exparel Dose:: 10 Additives (Indicate Dose Given): None Ultrasound: Sterile probe cover and gel used Ultrasound Image Saved?: Yes Nerve Stimulator: Not Used Paresthesia: None Procedure Tolerated: Patient tolerated well Procedure Outcome: Successful Performed By: Chevy Timmons Supervised By: Mina Mendez
--- NOTE | 2021-01-22 13:44 | W.ANESPOSTOP ---
Postoperative Evaluation Date, Time and Location Date Performed: 01/22/21 Time Performed: 13:30 Patient Location: PACU Vital Signs Most Recent Imported Vital Signs: Most Recent Vital Signs Temp Pulse Resp BP Pulse Ox 36.1 C L 54 L 14 149/76 H 99 01/22/21 13:25 01/22/21 13:25 01/22/21 13:25 01/22/21 13:25 01/22/21 13:25 Pain Score Most Recent Pain Score: Most Recent Pain Score Pain Level 2 01/22/21 13:25 Assessment Mental Status: Awake (Alert & Oriented to Patient Baseline) Airway and Respiratory Function: Patent airway with normal (patient baseline) respiratory exam Cardiovascular Function: Hemodynamically Stable Hydration Status: Adequately Hydrated Nausea & Vomiting: No Nausea or Vomiting Pain: Pain is tolerable per patient Peripheral Nerve Block: Regional nerve block not resolved at time of post operative discharge
== END 2021-01-22 15:45 | disposition home or self-care (01) ==
PROVIDERS: PCP Physician Assistant Medical; Visit Provider Surgery
PROC: (CPT 49505; principal; 2021-01-22 10:30)
DX: K40.90 Unilateral inguinal hernia, without obstruction or gangrene, not specified as recurrent (principal); G89.18 Other acute postprocedural pain
CPT/HCPCS: 49505; C1781; J0690; J1100; J2001; J2250; J2405

== ENCOUNTER → 2021-02-04 12:59 | Outpatient (BNVA) | payer MEDICARE, BC, SELFPAY | PROVIDERS: PCP Physician Assistant Medical; Referring Provider Physician Assistant Medical; Visit Provider Surgery | DX: Z48.815 Encounter for surgical aftercare following surgery on the digestive system (principal) ==

== ENCOUNTER → 2021-02-18 12:58 | Outpatient (BNVA) | payer MEDICARE, BC, SELFPAY | PROVIDERS: PCP Physician Assistant Medical; Referring Provider Physician Assistant Medical; Visit Provider Surgery | DX: Z48.815 Encounter for surgical aftercare following surgery on the digestive system (principal); K40.90 Unilateral inguinal hernia, without obstruction or gangrene, not specified as recurrent; Z80.0 Family history of malignant neoplasm of digestive organs ==

== ENCOUNTER → 2021-03-11 10:55 | Outpatient (BNVA) | payer MEDICARE, BC, SELFPAY | PROVIDERS: PCP Physician Assistant Medical; Referring Provider Physician Assistant Medical; Visit Provider Surgery | DX: Z48.815 Encounter for surgical aftercare following surgery on the digestive system (principal) ==

== ENCOUNTER 2021-03-18 00:03 | Outpatient (CLI) | payer MEDICARE, BC, SELFPAY ==
--- NOTE | 2021-03-18 08:45 | DI.NM_ITS ---
APPROVED REPORT Exam: Exercise Treadmill Patient Location: Out-Patient Room/Bed: Stress Nurse: Tiffany Mcgrath RN Ordering Provider:KADEN HURLEY MD Contact Number: [phone] BMI: 23.03 Baseline Rhythm: Sinus Rhythm, RBBB Comment: frequent PVCs, intermittent bigeminy Indications: Coronary atherosclerosis Medical History Medical History: OSCAR, SVT, STEMI, Palpitations Cardiac Medications: Pravastatin, Metoprolol succinate, Nitro SL, Famotidine, Aspirin, Allergies: Sertraline Cardiac Risk Factors: Hyperlipidemia, CVD Previous Cardiac Procedures: PCI in 2019 Pretest Chest Pain Characteristics: No chest pain Exercise History: Physically active Physical Disabilities: DJD L hip Lung Sounds: Clear to auscultation Heart Sounds: Regular Stress Test Details Test: Exercise stress testing was performed using a Jonathan protocol. Nuclear Acquisition: Rest Tc-99m/Stress Tc-99m 1 day Rest Isotope: Tc-99m Sestamibi. Dose: 10.3 Date: 03/18/2021 Injection Time: 0920 Stress Isotope: Tc-99m Sestamibi. Dose: 36.0 Date: 03/18/2021 Injection Time: 1107 HR Resting HR Supine: 70 bpm Max Heart Rate (APMHR): 140.370373 bpm Resting HR Standin bpm Target HR (85% APMHR): 119.335741 bpm Max HR Achieved: 158 bpm % of APMHR: 112.86 Recovery HR: 91 bpm HR response to stress: Accelerated HR response to stress BP Resting BP Supine: 162/78 mmHg Resting BP Standin/78 mmHg Max BP: 168/70 mmHg Recovery BP: 142/70 mmHg BP response to stress: Normal blood pressure response to stress. ECG Resting ECG: Sinus Rhythm, RBBB Ectopy: frequent PVCs, intermittent bigeminy Stress ECG: Sinus Tachycardia, RBBB ST Change: No significant ST segment changes noted Arrhythmia: PVCs Recovery ECG: Sinus Rhythm, RBBB Recovery ST Change: No significant ST segment changes noted Recovery Arrhythmia: frequent PVCs Clinical Reason for Termination: Fatigue Stress Symptoms: General Fatigue Exercise duration: 07 min02 sec Highest Stage Reached: Stage 3: 3.4 mph at 14% grade. Exercise capacity: 8.64 METs Wheatley Treadmill Score: 6 Rate Pressure Product: 11102 Stress ECG Conclusion 1. Resting electrocardiogram showed right bundle branch block 2. Patient exercised on the Jonathan protocol and completed a workload of 8.64 METS, stopping due to fat igue 3. Normal heart rate and blood pressure response to exercise. The patient achieved greater than 100% of predicted heart rate for age 4. Electrocardiographically the test was negative for myocardial ischemia 5. Frequent PVCs were seen Wheatley Treadmill Score is 6 which is Low risk. Stress Test Summary STAGE Time (mins) Speed (mph) Grade (%) HR BP SYMPTOMS METS Supine 70 162/78 Standing 90 162/78 1 3 1.7 10 119 160/72 4.6 2 6 2.5 12 146 168/70 7 1 min recovery 146 164/70 3 min recovery 110 154/74 6 min recovery 91 142/70 MPI Conclusion There is an area of infarction in the septal, anterior and anteroapical segments There is no ischemia EF 38% Radiologist Interpretation Radiologist agrees with Teletypewriter Operator's Interpretation. Radiologist Interpretation by: Dee Lion MD Interpretation Date/Time: 03/18/2021 16:30:16
== END 2021-03-18 00:23 ==
PROVIDERS: PCP Physician Assistant Medical; Visit Provider Internal Medicine Interventional Cardiology
DX: I25.10 Atherosclerotic heart disease of native coronary artery without angina pectoris (principal); E78.5 Hyperlipidemia, unspecified; I45.10 Unspecified right bundle-branch block; I49.3 Ventricular premature depolarization
CPT/HCPCS: 78452; 93016; 93018; 93017

== ENCOUNTER → 2021-04-15 13:20 | Outpatient (BNVA) | payer MEDICARE, BC, SELFPAY | PROVIDERS: PCP Physician Assistant Medical; Referring Provider Physician Assistant Medical; Visit Provider Surgery | DX: Z48.815 Encounter for surgical aftercare following surgery on the digestive system (principal); K40.90 Unilateral inguinal hernia, without obstruction or gangrene, not specified as recurrent; I21.3 ST elevation (STEMI) myocardial infarction of unspecified site; Z80.0 Family history of malignant neoplasm of digestive organs ==

== ENCOUNTER → 2021-07-19 09:21 | Outpatient (BNVA) | payer MEDICARE, BC, SELFPAY | PROVIDERS: PCP Physician Assistant Medical; Referring Provider Physician Assistant Medical; Visit Provider Physical Therapy Assistant | DX: Z12.11 Encounter for screening for malignant neoplasm of colon (principal); I10 Essential (primary) hypertension ==

== ENCOUNTER → 2021-12-24 12:48 | Outpatient (BNVA) | payer MEDICARE, BC, SELFPAY | PROVIDERS: PCP Family Medicine; Referring Provider Family Medicine; Visit Provider Internal Medicine Cardiovascular Disease | DX: R42 Dizziness and giddiness (principal); I25.2 Old myocardial infarction; Z95.5 Presence of coronary angioplasty implant and graft; I25.10 Atherosclerotic heart disease of native coronary artery without angina pectoris; R00.2 Palpitations | CPT/HCPCS: 93005; 99203; 99215 ==

== ENCOUNTER 2021-12-24 12:57 | Outpatient (CLI) | payer MEDICARE, BC, SELFPAY ==
--- NOTE | 2021-12-24 12:45 | RT.EKG_ITS ---
APPROVED REPORT Exam: Resting ECG Reason for Exam: NPW, Baseline needed Patient Location: O HR:66 bpm ECG Measurements Heart Rate 66 AXIS ME 190 P 51 QRSd 130 QRS 20 QT 414 T 59 QTc 434 Conclusion Sinus rhythm...normal P axis, V-rate 50- 99 Right bundle branch block...QRSd>120, terminal axis(90,270) Anteroseptal infarct, age indeterminate...Q >35mS, T neg, V1-V2
== END 2021-12-24 12:58 | disposition home or self-care (01) ==
LOC: DI.CARD 12:58
PROVIDERS: PCP Family Medicine; Visit Provider Internal Medicine Cardiovascular Disease
DX: I21.3 ST elevation (STEMI) myocardial infarction of unspecified site (principal); R00.2 Palpitations; R94.31 Abnormal electrocardiogram [ECG] [EKG]; I45.19 Other right bundle-branch block
CPT/HCPCS: 93010

== ENCOUNTER 2022-11-05 01:50 | Outpatient (CLI) | payer MEDICARE, BC, SELFPAY ==
--- NOTE | 2022-11-05 13:00 | DI.CT_ITS ---
Exam(s) CT HEAD WO EXAM: CT HEAD WO CLINICAL HISTORY: DIZZY SPELLS, [id number] AND GIDDINESS. TECHNIQUE: Imaging Protocol: Axial computed tomography images with coronal and sagittal reformatted images were created and reviewed COMPARISON: No exams were available for comparison FINDINGS: There are no skull fractures. There is no fluid in the visualized paranasal sinuses. There is no evidence of intracranial hemorrhage, mass effect, or shift of midline structures. There are no extra-axial fluid collections. The ventricles are not enlarged or shifted and there is no blo od within the ventricular system nor within the basal cisterns. IMPRESSION: No acute intracranial findings on this noninfused CT scan of the brain. RADIATION DOSE DELIVERED: 674.73mGy.cm Total DLP DATA REPOSITORY: All CT scans at this facility are submitted to the National Radiology Data Registry (NRDR) Dose Index Registry (DIR) with the [employer] ([employer]). RADIATION OPTIMIZATION: All CT scans at this facility use at least one of these dose optimization te chniques: automated exposure control; mA and/or kV adjustment per patient size (includes targeted exa ms where dose is matched to clinical indication); or iterative reconstruction.
== END 2022-11-05 02:10 ==
LOC: DI 01:50
PROVIDERS: PCP Family Medicine; Visit Provider Family Medicine
DX: R42 Dizziness and giddiness (principal)
CPT/HCPCS: 70450

== ENCOUNTER → 2022-12-25 07:53 | Outpatient (BNVA) | payer MEDICARE, BC, SELFPAY | PROVIDERS: PCP Family Medicine; Referring Provider Family Medicine; Visit Provider Student in an Organized Health Care Education/Training Program | DX: M16.12 Unilateral primary osteoarthritis, left hip (principal) | CPT/HCPCS: 99213 ==

== ENCOUNTER 2023-02-02 04:25 | Outpatient (CLI) | payer MEDICARE, BC, SELFPAY ==
[2023-02-02 14:18] LABS: HCT 42.6 % (40.0-50.0); HGB 13.8 g/dL (13.5-17.5); MCH 33.6 pg (27.0-33.0); MCHC 32.4 % (32.0-36.0); MCV 104 fL (80-95); MPV 9.9 fL (8.0-11.0); Platelet Count 196 10^3/uL (130-400); RBC 4.11 10^6/uL (4.36-5.78); RDW-SD 50.2 fL; WBC 7.73 10^3/uL (4.4-10.8)
[2023-02-02 14:37] LABS: Anion Gap 7.5 mmol/L (3-11); BUN 16 mg/dL (7-18); CO2 28.5 mmol/L (21.0-32.0); Calcium 9.3 mg/dL (8.5-10.1); Chloride 105 mmol/L (98-107); Estimated GFR 75.61 (mL/min/1.73m2); Glucose 100 mg/dL (74-106); Potassium 4.4 mmol/L (3.5-5.1); Sodium 141 mmol/L (136-145)
== END 2023-02-02 04:26 | disposition home or self-care (01) ==
LOC: LBO 04:25
PROVIDERS: PCP Family Medicine; Visit Provider Student in an Organized Health Care Education/Training Program
DX: M16.12 Unilateral primary osteoarthritis, left hip (principal); Z01.818 Encounter for other preprocedural examination
CPT/HCPCS: 36415; 80048; 85027; 72170

== ENCOUNTER 2023-02-02 13:25 | Outpatient (CLI) | payer MEDICARE, BC, SELFPAY ==
--- NOTE | 2023-02-02 13:00 | DI.RAD_ITS ---
Exam(s) XR PELVIS AP EXAM: XR PELVIS AP CLINICAL HISTORY: PRE OP L DOE. TECHNIQUE: 2D digital imaging was performed. COMPARISON: CR XR HIP RT AP LAT ONLY from 12/10/2020 CR XR HIP MIN 2V LT from 11/13/2022 FINDINGS: BONES: No acute fracture is present. No bony destructive lesion is seen. JOINTS: No dislocation present. There has been no change in the appearance of the right hip prosthesi s. There are again noted to be severe degenerative changes of the left hip, with obliteration of sup erior joint space, periarticular spurring and sclerosis. SOFT TISSUE: Vasectomy clips. IMPRESSION: Severe degenerative changes of the left hip. Right hip prosthesis is unremarkable. DATA REPOSITORY: RADIATION DOSE DELIVERED:
== END 2023-02-02 13:26 | disposition home or self-care (01) ==
LOC: DIORS 02-26 12:59
PROVIDERS: PCP Family Medicine; Visit Provider Physician Assistant
DX: M16.12 Unilateral primary osteoarthritis, left hip (principal); Z01.818 Encounter for other preprocedural examination
CPT/HCPCS: 72170

== ENCOUNTER 2023-02-10 05:47 | Day surgery (SDC) | payer MEDICARE, BC, SELFPAY ==
[2023-02-10] VITALS (10 sets, daily range): BP systolic 121–166; BP diastolic 57–75; PULSE 58–77; RESP 14–18; TEMP 36.1–36.8; O2SAT 95–99; BMI 24.2
[2023-02-10] MEDS: Acetaminophen 500 MG TAB 1000 MG PO (06:35)
[2023-02-10] MEDS: Lactated Ringers 1,000 ML 80 ML IV (06:50)
--- NOTE | 2023-02-10 06:57 | W.ANESPRE ---
General Info Date of Service Date Performed: 02/10/23 Height: 5 ft 7 in Weight: 70.2 kg Body Mass Index (BMI): 24.2 Surgical Procedure: Operation Date: 02/10/23 07:50 Proposed Procedure Side Surgeon p Hip Total Hip Anterior, Corail Coxa Vara Left Cayetano Tao MD Meds Allergies and Home Medications Allergies Allergy/AdvReac Type Severity Reaction Status Date / Time sertraline AdvReac fast heart Verified 02/10/23 06:14 rate, dry mouth, sweating, headache Home Medication Medication Instructions Recorded nitroglycerin 0.4 mg sublingual 0.4 mg sublingual ONCE PRN 08/30/20 tablet cholecalciferol (vitamin D3) 25 25 mcg PO DAILY 11/04/21 mcg (1,000 unit) capsule metoprolol succinate 25 mg 12.5 mg PO HS 12/24/21 tablet,extended release 24 hr multivitamin 1 tab PO DAILY 03/27/22 rosuvastatin 5 mg tablet 5 mg PO HS 11/25/22 acetaminophen 500 mg tablet 1,000 mg (2 x 500 mg) PO Q8H PRN 02/10/23 pain #90 tabs aspirin 81 mg tablet,delayed 81 mg PO BID 30 days #60 tabs 02/10/23 release celecoxib 200 mg capsule (Celebrex) 200 mg PO BID PRN #60 caps 02/10/23 dexamethasone 4 mg tablet 4 mg PO DAILY #2 tabs 02/10/23 docusate sodium 100 mg capsule 100 mg PO BID #30 caps 02/10/23 (Colace) pantoprazole 40 mg tablet,delayed 40 mg PO DAILY #14 tabs 02/10/23 release tramadol 50 mg tablet 50 mg PO Q6H PRN severe 02/10/23 postoperative pain #12 tabs Current Visit Medications: Current Medications Generic Name Dose Route Start Last Admin Trade Name Freq PRN Reason Stop Dose Admin Acetaminophen 1,000 mg 02/10/23 06:00 02/10/23 06:35 Acetaminophen 500 Mg Tab PO 02/10/23 16:00 1,000 mg PREOP BOLA Administration Celecoxib 400 mg 02/10/23 06:00 Celecoxib 200 Mg Cap PO 02/10/23 16:00 PREOP BOLA Tranexamic Acid 1,000 mg/ 60 mls @ 360 mls/hr 02/10/23 06:00 Sodium Chloride IV 02/10/23 16:00 PREOP BOLA Ringer's Solution 1,000 mls @ 80 mls/hr 02/10/23 06:00 IV 03/11/23 23:59 INFUSION BOLA Cefazolin Sodium/Dextrose 2 gm in 50 mls @ 100 mls/hr 02/10/23 06:00 Ancef Duplex IVPB 02/10/23 16:00 PREOP BOLA IV Miscellaneous Supplies 1 each 02/10/23 06:00 Iv Access IV 03/11/23 23:59 DIRECTED BOLA Sodium Chloride 0 ml 02/10/23 06:00 Normal Saline Flush 10 Ml Syr IV 03/11/23 23:59 PRN PRN Sodium Chloride 0 ml 02/10/23 06:00 Normal Saline 10 Ml Vial IJ 03/11/23 23:59 DIRECTED PRN Sterile Water 0 ml 02/10/23 06:00 Water,Injection,Sterile 10 Ml Vial IJ 03/11/23 23:59 DIRECTED PRN PFSH Active Problems Active Problems: Problem Status Onset Code Coronary artery disease I25.10 Family history of colon cancer in father Z80.0 DNI (do not intubate) Z78.9 DNR (do not resuscitate) Z66 Grief F43.21 STEMI (ST elevation myocardial infarction) I21.3 Fatigue R53.83 Hyperglycemia R73.9 Chronic cough R05 Osteoarthritis of hip M16.9 Abdon-Anderson respiration R06.3 Mixed sleep apnea G47.39 Palpitations R00.2 Right inguinal hernia K40.90 Degenerative joint disease of left hip M16.12 Medical History Medical History (Updated 02/10/23 @ 07:09 by Ana Quiñones) Sleep apnea uses CPAP Fracture of finger of right hand fixed with pin Elevated liver enzymes Thoracic back pain Cervical radiculopathy Supraventricular tachycardia Acute ST segment elevation myocardial infarction F/U up with cardiology last seen 10/08/[address] Yadav 02/09/23: Last f/u 12/24/21 Vitamin D deficiency Shoulder joint pain Caregiver stress syndrome History of inguinal hernia Right History of supraventricular tachycardia As per Dr. 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) History of circumcision S/P tonsillectomy and adenoidectomy History of breast lump/mass excision Lump removed from left breast Status post vasectomy Tobacco Smoking/Tobacco Use Status: Never Alcohol Alcohol Intake: never Substance Use Substance use: Never Substance use type: does not use Vital Signs and Lab Results Vital Signs Most Recent Vital Signs in EMR: Most Recent Vital Signs Temp Pulse Resp BP Pulse Ox 36.6 C 65 18 166/75 H 99 02/10/23 06:24 02/10/23 06:24 02/10/23 06:24 02/10/23 06:24 02/10/23 06:24 Lab Results Blood Type / Crossmatch: No Data to Display Complete Blood Count: White Blood Count 7.73 10^3/uL (4.4-10.8) 02/02/23 14:10 Red Blood Count 4.11 10^6/uL (4.36-5.78) L 02/02/23 14:10 Hemoglobin 13.8 g/dL (13.5-17.5) 02/02/23 14:10 Hematocrit 42.6 % (40.0-50.0) 02/02/23 14:10 Platelet Count 196 10^3/uL (130-400) 02/02/23 14:10 Complete Metabolic Panel: Sodium 141 mmol/L (136-145) 02/02/23 14:10 Potassium 4.4 mmol/L (3.5-5.1) 02/02/23 14:10 Chloride 105 mmol/L (98-107) 02/02/23 14:10 Carbon Dioxide 28.5 mmol/L (21.0-32.0) 02/02/23 14:10 BUN 16 mg/dL (7-18) 02/02/23 14:10 Creatinine 1.0 mg/dL (0.70-1.30) 02/02/23 14:10 Est GFR (CKD-EPI 2020) 75.61 (mL/min/1.73m2) 02/02/23 14:10 Calcium 9.3 mg/dL (8.5-10.1) 02/02/23 14:10 Glucose 100 mg/dL (74-106) 02/02/23 14:10 Liver Function Panel: No Data to Display Coagulation Panel: No Data to Display Cardiac Panel: No Data to Display Arterial Blood Gas: No Data to Display Venous Blood Gas: No Data to Display Pancreas Panel: No Data to Display Thyroid Panel: No Data to Display Infectious Disease: No Data to Display Blood Cultures: No Data to Display Toxicology Panel: No Data to Display Imaging and Studies Imaging and Studies Study information below may be from another EMR and interpreted by another provider. Please see original notes in EMR for more complete details. EKG Summary: 12/24/2021: Exam: Resting ECG Reason for Exam: NPW, Baseline needed Patient Location: O HR:66 bpm ECG Measurements Heart Rate 66 AXIS ND 190 P 51 QRSd 130 QRS 20 QT 414 T59 QTc 434 Conclusion Sinus rhythm...normal P axis, V-rate 50- 99 Right bundle branch block...QRSd>120, terminal axis(90,270) Anteroseptal infarct, age indeterminate...Q >35mS, T neg, V1-V2 Echocardiogram Summary: 01/08/2023: EF 55-60%, mild MR and TR. Anesthesia Assessment and Plan Anesthesia History Personal History: No History of Anesthesia Complications Family History: No Family History of Anesthesia Complications Exercise Tolerance Exercise Tolerance: Metabolic Equivalents>4 Pertinent Negatives Pertinent Negatives: No Symptoms of GERD and No Major Pulmonary Symptoms or Complaints Cardiac & Pulmonary Exam Cardiac Exam: Normal S1/S2 Heart Sounds Pulmonary Exam: Clear Bilateral Breath Sounds Implantable Cardiac Device Does patient have a Pacemaker or an ICD?: No Airway Exam Known Difficult Airway: No Mallampati Class: 2 Mouth Opening: Normal (> 3cm) Thyromental Distance: Greater than 3 cm Neck Range of Motion: Full ROM Neck Circumference: Normal Teeth Condition: Normal Dentition ASA Classification ASA Score: ASA 3 Emergency Case?: No NPO Status NPO Status: NPO Clears >2 hours, Solids >8 hours Anesthesia Plan Resuscitation Status: Full Code Anesthesia Technique: Spinal Anesthesia Airway Planned: Natural Airway Monitors Used: Standard Monitors
--- NOTE | 2023-02-10 07:00 | DI.RAD_ITS ---
Exam(s) XR HIP LT IN OR EXAM: XR HIP LT IN OR CLINICAL HISTORY: left osteoarthritis. TECHNIQUE: 2D digital imaging was performed. COMPARISON: No exams were available for comparison FINDINGS: Intraoperative fluoroscopy provided during left hip arthroplasty. See procedure report for details. Total fluoroscopy time 26.7 seconds IMPRESSION: Radiation exposure index/cumulative dose: Esper[place]ar= 2.3389 mGy DATA REPOSITORY: RADIATION DOSE DELIVERED:
[2023-02-10] MEDS: Celecoxib 200 MG CAP 400 MG PO (07:05)
[2023-02-10] MEDS: ceFAZolin 2 GM/50 ML BAG IVPB (07:50)
--- NOTE | 2023-02-10 08:40 | W.PM.OP ---
Date of service: 02/10/23 Time of Service: 07:45 Operative Note Operative Note DATE OF PROCEDURE: 02/10/23 PRE-OP DIAGNOSIS: Left Hip Osteoarthritis POST-OP DIAGNOSIS: same PROCEDURE: Left Anterior Total Hip Arthroplasty with Intraoperative Navigation SURGEON: Cayetano Tao [employer] OUT WORKER: Amanda Pierce ANESTHESIA TYPE: Spinal Refer to Anesthesia Record ESTIMATED BLOOD LOSS: 200 PATHOLOGY: none sent TOURNIQUET TIME: 0 COMPLICATIONS: None Patient was transported to: PACU Patient's condition: stable Implants: 1. Depuy [place] Acetabular Component, 52mm 2. Depuy Acetabular Liner, [id number] 3. Depuy Corail Coxa Vara Collared Femoral Stem, Size 11 4. Depuy Altrx Ceramic Femoral Head, Size 36+5mm Indications: I have seen Kevin in clinic for symptoms of hip arthritis, confirmed with radiographic findings. He has exhausted nonoperative methods and was having significant limitations in daily function and desired better function and less pain. I discussed the technical details of a hip replacement. I explained the risks of the procedure to include, but not limited to, bleeding, infection, pain, stiffness, fracture, damage to nerves and vessels, damage to muscles and tendons, loosening, instability, leg length inequality, need for repeat procedure, blood clot and cardiopulmonary demise. Despite these risks, Kevin elected to proceed. Findings: There was significant signs of arthritis throughout the hip with large osteophytes and exposed bone of the femoral head. Procedure Description: Kevin was greeted in the preoperative holding area where the correct side was identified and marked. The consent was reviewed with the patient and signed. The history and physical was updated. All questions were answered. He was taken back to the operating room. A spinal anesthestic was then administered. The feet were wrapped with cast padding and Coban and then placed into the boot liners and then into the boots. Care was taken to protect the skin and make sure the heels were fully down and the boots were stable. The patient was then positioned onto the HANA table. Both legs were held in a neutral position. SCDs were applied. The patient was then slid down onto a peroneal post. Prophylactic antibiotics in the form of Cefazolin were administered. 1g of Tranxemic Acid was given intravenously within 30 minutes of incision. The left leg was then prepped with Chloraprep and draped in a standard fashion. A second prep with Chloraprep was performed prior to placement of a shower-curtain type drape with Iodine impregnated skin protection. A timeout to confirm correct identity, side and site, procedure, allergies, anesthesia, and medical concerns was performed. An obliquely oriented incision was made starting lateral to the ASIS and running distal over the Tensor Fascia Savi (TFL) muscle belly toward the fibular head, approximately 10cm. The skin and soft tissue was dissected sharply, through James?s fascia, and to the fascia of the TFL. With the fascia and superior border of the IT band identified, the fascia was incised with a new knife just above any perforators from the IT band. The TFL muscle belly was bluntly dissected away from the fascia and moved laterally. The fat between TFL and rectus was identified to ensure the dissection was not within the TFL. Blunt dissection created space between abductors and the capsule and retractor was placed over the lateral femoral neck. The fibers of the rectus femoris tendon were identified and these were freed from the anterior capsule. A second cobra retractor was placed around the medial femoral neck. The TFL was further retracted laterally to show the deep fascia. Careful dissection through this layer identified three main crossing vessels of the lateral femoral circumflex. These were cauterized in multiple locations and then cut without any noticeable bleeding. The TFL was further released bluntly from the deep fascia to expose anterior hip capsule and fat The Bal orthopaedic retractor was then placed beneath the TFL and against sartorius and medial soft tissues to protect and retract the soft tissues. A T-capsulotomy was then performed starting at the superior lateral acetabulum and moving distally to the intertrochanteric ridge. These capsular flaps were tagged with a No. 1 Ethibond and elevated from within. The capsular flaps were released to the shoulder of the lateral neck and to the lesser trochanter to give excellent visualization of the proximal femur. A neck osteotomy was performed using an oscillating saw based on preoperative templates. This cut started in the shoulder and of the lateral neck and exited medially. The saw was at all times directed medially to avoid injury to the greater trochanter. Gross traction was applied to the leg and the osteotomy opened. The femoral head was removed with a corkscrew, making sure to protect the TFL on its exit. Traction was released after head removal. This was measured on the back table to determine the starting reamer size. Portions of the rectus obscuring visualization were minimally elevated off the superior acetabulum. An anterior retractor was placed over the anterior wall between capsule and labrum and attached to the Gripper retraction system. The femur was rotated to 90 degrees and medial capsule was fully released until the lesser trochanter was palpable and visible; the femur was returned to 30 degrees. A posterior retractor was placed similarly between capsule and labrum. This provided excellent visualization. The contents of the cotyloid fossa were removed with electrocautery and the labrum was removed with a knife. There was a notable floor osteophyte. There was significant chondromalacia of the superior acetabulum. Acetabular reaming began with a 48mm reamer. This first reaming was directed anterior to posterior and medial to get down to the true floor. This was inspected and reamed until the true floor was reached. The anterior retractor was then released and entry and exit was provided by traction on the capsular flaps. I then reamed sequentially up to a 52mm reamer where good fit was obtained. The larger reamers were oriented based on anatomical reference of the anterior and lateral barclay to ensure proper abduction and anteversion. Positioning and size was confirmed with the fluoroscopy. A 52mm Depuy [place] acetabular component was selected. The acetabulum was reamed around the periphery with the selected acetabular size to prevent a rim fit. The deep tissues were irrigated. The acetabular component was then impacted in a position of about 40-45 degrees of abduction and 15-20 degrees of anteversion, using the patient?s anatomy as the ultimate landmark. Fluoroscopy was used to confirm this. There was excellent trailer body assembler of the acetabular component and the inserting handle was removed. The acetabular liner, Depuy [id number] polyethylene liner, was inserted and lined up with the tines of the acetabular component. There was no soft tissue interposition. The liner was then impacted into position and confirmed to be well-seated. A portion of the amos-articular cocktail was then injected around the acetabulum into the capsule and periosteum. This cocktail consisted of 123mg of Ropivacaine, 0.25mg of Epinephrine, 0.04mg of Clonidine, and 15mg of Ketorolac, diluted to 50cc. The leg was rotated to 120 degrees. Any remaining medial capsule was released until the lesser trochanter was easily palpable. A retractor was placed medially. The lateral capsule was further released into the shoulder to allow access to the greater trochanter. A Fairchild retractor was placed over the greater trochanter which allowed the trochanter to flip in front of the capsule for excellent exposure. The leg was brought down into maximal extension and 20 degrees of adduction while ensuring there was no impingement on the acetabulum. Any remnant capsule within the trochanter was released. Piriformis and obturator externis were identified and protected. There was excellent access to the proximal femur. The lateral neck remnant was removed with a rongeur. A blunt canal probe was used to identify the canal and trajectory for later broaching. A box osteotome initiated the broach course. A small curved rasp and a curved curette were used to work laterally. Broaching then began with a size 8 Corail broach. This was inserted manually around the trochanter and into the canal before mallet blows. The broach was seated to a few millimeters below the cut level based on the neck cut and the preoperative template. Sequential broaching was continued with the Attentiose pneumatic broaching device until a tight fit was obtained with good rotational control of the femur. A trial coxa vara neck was inserted along with a +5 trial head. The leg was brought out of extension and adduction and then reduced with traction and internal rotation. The leg was stable anteriorly in a position of 30 degrees of extension and 90 degrees of external rotation. Fluoroscopy was used to ensure there was no fracture and the stem was seated well. Leg lengths were checked with an AP pelvis and pelvic reference points. [place] Digital navigation system was used to confirm appropriate positioning and leg length and offset. Once content with the desired offset and leg lengths, the leg was brought back into extension, external rotation and adduction. The periosteum and surrounding tissue was injected with remaining portion of the amos-articular cocktail. The proximal femur was irrigated as well as the deep tissues. The Depuy Corail coxa vara collared stem, size 11, was then manually inserted into the proximal femur making sure to control rotation. It was then malleted into position with light blows, giving breaks to allow bone expansion and decrease risk of fracture. The selected Depuy Altrx Ceramic Head, size 36+5mm, was then placed onto the clean and dry trunnion and secured with impaction onto the tapered fit. The leg was brought back out of extension and adduction and reduced with traction and internal rotation. Stability was confirmed with no shuck at 90 degrees of external rotation and 30 degrees of extension. No impingement through range of motion arc. Final x-ray images were obtained with fluoroscopy to confirm adequate positioning and no intraoperative fracture. The deep tissues were thoroughly irrigated with Surgiphor, betadine solution. This was allowed to sit in the wound for 3 minutes before being thoroughly irrigated out with normal saline. The capsule was then reapproximated with the previously placed Ethibond sutures. The TFL fascia was finally closed with a No. 2 Stratafix, barbed suture. Deep tissues were then reapproximated with 0 Vicryl and a running 2-0 Vicryl. The skin was closed with a running 4-0 Monocryl in a subcuticular fashion. This was reinforced with skin glue. A Mepilex silver dressing was applied. At the end of the case, all counts were correct. Kevin was transferred to the hospital bed without difficulty and suffering no apparent complication. Kevin has a good prognosis. Physical therapy will start today and without restrictions, weight-bearing as tolerated. Aspirin 81mg BID will be used for DVT prophylaxis.
--- NOTE | 2023-02-10 09:32 | W.ANESPOSTOP ---
Postoperative Evaluation Date, Time and Location Date Performed: 02/10/23 Time Performed: 09:31 Patient Location: PACU Vital Signs Most Recent Imported Vital Signs: Most Recent Vital Signs Temp Pulse Resp BP Pulse Ox 36.8 C 59 L 16 140/63 98 02/10/23 09:25 02/10/23 09:25 02/10/23 09:25 02/10/23 09:25 02/10/23 09:25 Pain Score Most Recent Pain Score: Most Recent Pain Score Pain Level 2 02/10/23 09:25 Assessment Mental Status: Awake (Alert & Oriented to Patient Baseline) Airway and Respiratory Function: Patent airway with normal (patient baseline) respiratory exam Cardiovascular Function: Hemodynamically Stable Hydration Status: Adequately Hydrated Nausea & Vomiting: No Nausea or Vomiting Pain: Pt. Denies Any Pain Peripheral Nerve Block: Patient did not receive a nerve block
--- NOTE | 2023-02-10 10:20 | W.PM.DS.N ---
Date of service: 02/10/23 Time of Service: 10:25 DS: Diagnosis Discharge Diagnosis (1) Degenerative joint disease of left hip: Status: Acute Discharge Plan Disposition Patient Disposition: Home Condition: Good Discharge Details Reason For Visit: Left hip DJD Attending Provider: Cayetano Tao Primary Care Provider: Uriah Gamble Home Meds and New Rx's Prescriptions: New acetaminophen 500 mg tablet 1,000 mg PO Q8H PRN Qty: 90 0RF Rx Instructions: Take two tablets up to every 8 hours as needed for pain aspirin 81 mg tablet,delayed release (DR/EC) 81 mg PO BID 30 Days Qty: 60 0RF celecoxib [Celebrex] 200 mg capsule 200 mg PO BID PRNQty: 60 0RF Rx Instructions: Take one tablet twice daily for pain and inflammation docusate sodium [Colace] 100 mg capsule 100 mg PO BID Qty: 30 0RF dexamethasone 4 mg tablet 4 mg PO DAILY Qty: 2 0RF Rx Instructions: Take one tablet once daily for two days pantoprazole 40 mg tablet,delayed release (DR/EC) 40 mg PO DAILY Qty: 14 0RF tramadol 50 mg tablet 50 mg PO Q6H PRN (Reason: severe postoperative pain) Qty: 12 0RF Rx Instructions: Take one tablet up to every 4 hours as needed for severe pain Continued metoprolol succinate 25 mg tablet extended release 24 hr 12.5 mg PO HS nitroglycerin 0.4 mg tablet, sublingual 0.4 mg sublingual ONCE PRN Patient Comments: [facility] [place] Cardiology Rx Instructions: place one tablet as needed by sublingual route multivitamin Tablet 1 tab PO DAILY cholecalciferol (vitamin D3) 25 mcg (1,000 unit) capsule 25 mcg PO DAILY rosuvastatin 5 mg tablet 5 mg PO HS Discontinued aspirin [Adult Aspirin Regimen] 81 mg tablet,delayed release (DR/EC) 81 mg PO DAILY acetaminophen 500 mg tablet 1,000 mg PO Q8H PRN (Reason: pain) Qty: 90 3RF Discharge Instructions Additional Instructions: Total Hip Discharge Instructions Activity: The most important activity is to walk. You should try to take short walks a few times a day. You have no restrictions on movement or positioning, but do not try to force what you do. You will find some stiffness and weakness with hip flexion (lifting your knee). Do not try to strengthen this too early, continue to practice walking and stairs and this will come. - Outpatient physical therapy can be helpful to help return you to a normal gait and improve your flexibility and strength. This can start around 2 weeks. For some patients, it?s not necessary. Usually this is determined at the time of discharge or at the first post-operative visit. - You should wear the JESUS hose on both legs for 2 weeks. Dressing: Keep the surgical dressing in place for at least one week. After the first week it may be removed and replace with light gauze and tape or nothing. It may get wet after 3 days but avoid soaking the dressing. If it gets wet, just lightly pat dry. It is important to always keep some gauze between skin folds, especially when you are sitting. Spend some time with the wound exposed when you are lying flat as the incision does wrinkle onto itself. Medications: - You should take Tylenol and an anti-inflammatory Celebrex as your primary pain control medications. If the Celebrex is too expensive or not covered, please call the office for another alternative (Advil/Ibuprofen or Naproxen/Aleve). - You have been prescribed a stronger pain medication Tramadol for breakthrough pain, take as needed as prescribed. - You have also been prescribed a stomach acid reduction agent Pantoprozole to help reduce stomach acid and reflux. - You have also been prescribed Decadron to help with post-operative nausea and pain. You will take this for two days starting tomorrow. - You will be taking Aspirin 81mg twice a day for DVT prevention unless instructed otherwise. - If you have constipation you should take Colace (which has been prescribed) or Miralax (which is available [id number]). It takes most people 3-4 days to have a bowel movement. Follow-up: 2 weeks If you have any acute concerns or questions, please do not hesitate to contact the office at [phone]. You may contact Dr. Tao with any questions after hours through the hospital at [phone] or on his cell phone at [phone]. Stand Alone Forms: Anesthesia Discharge Inst., Pato Coombs (U) Referrals: Cayetano Tao MD [ [facility] STAFF PHYSICIAN] - 02/23/23 1:45 pm Equipment/Supplies: Walker Activity:: Elevate Remove Dressings/Wound Care:: Do Not Remove Shower/Bathe:: Cover Diet:: As Tolerated Discharge Orders Discharge Orders: Discharge Order (Routine); Ordered 02/10/23 Ordered By: Amanda Pierce Discharge Data Discharge Date/Time-TO BE ENTERED AT DEPARTURE: 02/10/23 11:56 DS: Summary Time Spent with Patient providing and/or coordinating discharge services: Less than 30 minutes Status at Discharge Functional status at discharge: uses cane/walker Overall status at discharge: patient is progressing back to baseline Mental Status: mental status grossly normal Speech and Movement: speech and movement normal Mood: congruent mood Affect: normal affect Exam Psych Mental Status: mental status grossly normal Speech and Movement: speech and movement normal Mood: congruent mood Affect: normal affect DS: Data Vitals/I&O Vitals and I&O: Vital Signs Temperature 97.9 F 02/10/23 06:24 Pulse 65 02/10/23 06:24 Pulse Rhythm Irregular 02/10/23 06:24 Respiratory Rate 18 02/10/23 06:24 Respiratory Depth Normal 02/10/23 06:24 Blood Pressure 166/75 H 02/10/23 06:24 Pulse Oximetry 99 02/10/23 06:24 Oxygen Delivery Method Room Air 02/10/23 06:24 Oxygen Flow Rate 0 02/10/23 06:24 Intake & Output 02/09/23 02/09/23 02/10/23 11:59 23:59 11:59 Weight 153 lb 15.992 oz 154 lb 12.232 oz PFSH All Active Problems (Updated 02/10/23 @ 07:09 by Ana Quiñones) Coronary artery disease (Chronic) Family history of colon cancer in father (Acute) DNI (do not intubate) (Acute) DNR (do not resuscitate) (Acute) Grief (Chronic) STEMI (ST elevation myocardial infarction) (Acute) Fatigue (Acute) Hyperglycemia (Acute) Chronic cough (Acute) Osteoarthritis of hip (Acute) Abdon-Anderson respiration (Acute) Mixed sleep apnea (Acute) Palpitations (Acute) As per note by Dr. Yadav (Cardiology at [facility]) - states palpitations have mostly resolved with lifestyle modifications Right inguinal hernia (Acute) Degenerative joint disease of left hip (Acute) Medical History (Updated 02/10/23 @ 07:09 by Ana Quiñones) Sleep apnea uses CPAP Fracture of finger of right hand fixed with pin Elevated liver enzymes Thoracic back pain Cervical radiculopathy Supraventricular tachycardia Acute ST segment elevation myocardial infarction F/U up with cardiology last seen 10/08/[address] Yadav 02/09/23: Last f/u 12/24/21 Vitamin D deficiency Shoulder joint pain Caregiver stress syndrome History of inguinal hernia Right History of supraventricular tachycardia As per Dr. 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) History of circumcision S/P tonsillectomy and adenoidectomy 1949s History of breast lump/mass excision Lump removed from left breast Status post vasectomy Family History Sister Breast cancer Brother Prostate cancer Social History Smoking/Tobacco Use Status: Never Smoking risk assessment performed?: Yes Alcohol Intake: never Drug use: Never Substance use type: does not use Housing: house 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
--- NOTE | 2023-02-10 10:35 | IN_ITS ---
Date of service: 02/10/23 Time of Service: 10:35 PT Notes Visit Reasons: Left hip DJD Physical Therapy Day Surgery Initial Evaluation Date: 02/10/2023 Referring Doctor: BONI Inman PT Orders: PT CONSULT: S/P Ortho Surgery Precautions: WBAT on left LE with AD. Patient Profile/Admitting Diagnosis: Kevin is an 83-year-old male with degenerative joint disease of the left hip and is status post left total anterior hip arthroplasty on postoperative day 0. PMHX: Medical History Acute ST segment elevation myocardial infarction F/U up with cardiology last seen 10/08/[address] Yadav Caregiver stress syndrome Cervical radiculopathy Chronic low back pain Degenerative joint disease of right hip Elevated liver enzymes Generalized anxiety disorder History of inguinal hernia RightHistory of supraventricular tachycardia As per Dr. 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 Independent with all aspects of ADLs prior to surgery however with increasing difficulty of performance due to worsening pain level on the left hip with day-to-day activities Equipment Owned/DME: [facility], [facility] Subjective: Reports 1?2/10 pain in the left hip and thigh muscle at rest and with movement. Denies headache, chest pain, and lightheadedness throughout session. Amazed at how much he is able to do with out hurting too much. Objective: General Observation: Supine in bed. Mepilex Ag over surgical incision. TEDS on B legs. Mental Status: Alert and oriented x4 Pain: As above ROM: Right Lower Extremity: Hip flexion WFL. Hip abduction WFL. Knee flexion WFL. Ankle dorsiflexion WFL. Ankle plantarflexion WFL. Left Lower Extremity: Hip flexion WFL. Hip abduction WFL. Knee flexion WFL. Ankle dorsiflexion WFL. Ankle plantarflexion WFL. Strength: Right Lower Extremity: Hip flexors 5/5. Hip abductors 5/5. Knee flexors 5/5. Knee extensors 5/5. Ankle dorsiflexors 5/5. Ankle plantarflexors 5/5. Left Lower Extremity:Hip flexors 4/5. Hip abductors 4/5. Knee flexors 5/5. Knee extensors 4/5. Ankle dorsiflexors 5/5. Ankle plantarflexors 5/5. Sensation: Intact as to pain and light pressure in bilateral lower extremities Bed Mobility/Transfers: Supine to sit standby assist Sit to stand contact-guard assist with cues to use B hands for support given Stand to sit standby assist using FWW Bed to chair standby assist using FWW Gait: Facilitated safe and correct performance of level surface ambulation using front wheeled walker with step through heel toe gait pattern requiring only standby assist and minimal verbal cueing for AD management, limb advancement, and posture. Balance: Static Sitting: Normal Dynamic Sitting: Normal Static Standing: Fair Dynamic Standing: Fair Special Tests: Mobility Limitations Standardized Measure [facility] 6 clicks Basic Mobility Inpatient Short Form: Raw Score: 24 CMS Score: 0% deficit Informed Consent/Education: Patient instructed in purpose of PT consult. Packet containing DOE exercise protocol has been given to patient. Education and training on initial set of exercises that can be done at home have been completed with patient. THERA ACT: Trained patient with correct performance of exercises below to maximize motor control, joint flexibility, soft tissue extensibility of the [] hip musculature to facilitate return to independent functional mobility performance. Access Code: [email or web address] URL: [email or web address] Date: Prepared by: Katherine Aranda Exercises - Gluteal Sets - 1 x daily - 7 x weekly - 1 sets - 10 reps - 5 hold - Supine Heel Slide - 1 x daily - 7 x weekly - 1 sets - 10 reps - 5 hold - Supine Ankle Pumps - 1 x daily - 7 x weekly - 1 sets - 10 reps - 5 hold - Seated March - 1 x daily - 7 x weekly - 1 sets - 10 reps - 5 hold - Seated Long Arc Quad - 1 x daily - 7 x weekly - 1 sets - 10 reps - 5 hold Assessment: Patient requires the use of a front wheeled walker for all mobility ADL performance maximize independence and reduce fall risk. Patient presents with clinical signs and symptoms consistent with current/admitting diagnoses that have resulted to mobility limitations, gait instability, generalized weakness, and impairment of motor control as demonstrated by the following impairment level findings: 1. Decreased strength to left hip major muscle groups 2. Impaired standing balance Impairments are contributing to the following functional limitations: 1. Inability to safely ambulate without assistive device 2. Increase completion time for mobility ADL performance 3. Increased fall risk Patient is assessed as a 34362 moderate complexity based on the following: History: 83-year-old male with impairment level findings, functional limitation s, and past medical history as indicated above Examination: Demonstrable impairment in strength, balance, and mobility level with underlying impairments and functional limitations as documented above Presentation: Evolving Decision Makin moderate complexity Goals: N/A. PT evaluation and 1-2 treatment sessions only for functional mobility training using recommended AD and for HEP instruction. Plan of Care/Treatment Plan: N/A. PT evaluation and 1-2 treatment session only for functional mobility training using recommended AD and for HEP instruction. DISCHARGE RECOMMENDATIONS: Home when medically cleared by orthopedic surgeon. Recommend outpatient PT services in order to optimize functional mobility outcomes and facilitate return to independent community ambulation without an assistive device. TREATMENT CODE/TIME: 08779 x 29 minutes for 1 unit beginning at 10:35 AM. Thank you for the opportunity to participate in the care of this patient. Katherine Aranda PT, DPT, CLT [facility] [place], [place]
== END 2023-02-10 11:56 | disposition home or self-care (01) ==
PROVIDERS: PCP Family Medicine; Visit Provider Student in an Organized Health Care Education/Training Program
PROC: (CPT 27130; principal; 2023-02-10 07:30)
DX: M16.12 Unilateral primary osteoarthritis, left hip (principal); I25.10 Atherosclerotic heart disease of native coronary artery without angina pectoris; Z66 Do not resuscitate; G47.39 Other sleep apnea
CPT/HCPCS: 20985; 27130; C1776; 97162; 73501; J0690; J2001; J2405

== ENCOUNTER 2023-02-23 17:52 | Outpatient (CLI) | payer MEDICARE, BC, SELFPAY ==
--- NOTE | 2023-02-23 13:45 | DI.RAD_ITS ---
Exam(s) XR HIP LT COMPLETE AP PELVIS EXAM: XR HIP LT COMPLETE AP PELVIS INDICATION: 1ST POST OP S/P L DOE. COMPARISON: CR XR PELVIS AP from 02/02/2023 XA XR HIP LT IN OR from 02/10/2023 TECHNIQUE: 2D digital imaging was performed. Two views. FINDINGS: There has been no change in the alignment of the bilateral hip prostheses. No abnormal surrounding b kassi lucencies are seen. DATA REPOSITORY: RADIATION DOSE DELIVERED:
== END 2023-02-23 17:53 | disposition home or self-care (01) ==
LOC: DIORS 17:52
PROVIDERS: PCP Family Medicine; Referring Provider Family Medicine; Visit Provider Student in an Organized Health Care Education/Training Program
DX: Z96.642 Presence of left artificial hip joint (principal); Z47.1 Aftercare following joint replacement surgery
CPT/HCPCS: 73502

== ENCOUNTER → 2023-03-23 13:58 | Outpatient (BNVA) | payer MEDICARE, BC, SELFPAY | PROVIDERS: PCP Family Medicine; Visit Provider Student in an Organized Health Care Education/Training Program | DX: Z47.1 Aftercare following joint replacement surgery (principal); Z96.642 Presence of left artificial hip joint ==

== ENCOUNTER → 2023-05-04 13:03 | Outpatient (BNVA) | payer MEDICARE, BC, SELFPAY | PROVIDERS: PCP Family Medicine; Visit Provider Student in an Organized Health Care Education/Training Program | DX: Z47.1 Aftercare following joint replacement surgery (principal); Z96.642 Presence of left artificial hip joint ==

== ENCOUNTER 2023-11-18 08:18 | Outpatient (CLI) | payer MEDICARE, BC, SELFPAY ==
[2023-11-18 18:36] LABS: PSA, Screening 12.7 ng/mL (<=6.5)
== END 2023-11-18 08:19 | disposition home or self-care (01) ==
LOC: LBO 08:19
PROVIDERS: PCP Family Medicine; Visit Provider Family Medicine
DX: R97.20 Elevated prostate specific antigen [PSA] (principal)
CPT/HCPCS: 36415; 84153

== ENCOUNTER → 2023-12-24 12:51 | Outpatient (BNVA) | payer MEDICARE, BC, SELFPAY | PROVIDERS: PCP Family Medicine; Referring Provider Family Medicine; Visit Provider Surgery | DX: R10.31 Right lower quadrant pain (principal); Z98.890 Other specified postprocedural states | CPT/HCPCS: 99214 ==

== ENCOUNTER → 2024-01-13 09:45 | Outpatient (BNVA) | payer MEDICARE, BC, SELFPAY | PROVIDERS: PCP Family Medicine; Referring Provider Family Medicine; Visit Provider Surgery | DX: R10.31 Right lower quadrant pain (principal); K40.90 Unilateral inguinal hernia, without obstruction or gangrene, not specified as recurrent; K42.9 Umbilical hernia without obstruction or gangrene | CPT/HCPCS: 99213 ==

== ENCOUNTER 2024-02-22 11:49 | Outpatient (CLI) | payer MEDICARE, BC, SELFPAY ==
--- NOTE | 2024-02-22 10:00 | DI.RAD_ITS ---
Exam(s) XR HIP LT AP LAT ONLY EXAM: XR HIP LT AP LAT ONLY INDICATION: ANNUAL F/U L DOE. COMPARISON: CR XR HIP LT COMPLETE AP PELVIS from 02/23/2023 TECHNIQUE: 2D digital imaging was performed. Two views. FINDINGS: There has been no change in the alignment of the left total hip prosthesis. There are no abnormal s urrounding bony lucencies. Impression: Stable appearance of left hip prosthesis. DATA REPOSITORY: RADIATION DOSE DELIVERED:
== END 2024-02-22 11:50 | disposition home or self-care (01) ==
LOC: DIORS 11:49
PROVIDERS: PCP Family Medicine; Referring Provider Family Medicine; Visit Provider Student in an Organized Health Care Education/Training Program
DX: Z47.1 Aftercare following joint replacement surgery (principal); M70.62 Trochanteric bursitis, left hip; Z96.642 Presence of left artificial hip joint
CPT/HCPCS: 99213; 73502

== ENCOUNTER 2024-03-01 15:29 | Outpatient (CLI) | payer MEDICARE, BC, SELFPAY ==
--- NOTE | 2024-03-01 09:16 | DI.RAD_ITS ---
Exam(s) XR SHOULDER RT COMPLETE 2+V EXAM: XR SHOULDER RT COMPLETE 2+V CLINICAL HISTORY: BILATERAL SHOULDER PAIN. TECHNIQUE: 2D digital imaging was performed of the right shoulder. Two images were obtained. Grash ey and axillary views were obtained. COMPARISON: No exams were available for comparison FINDINGS: BONES: No acute fracture is present. No bony destructive lesion is seen. JOINTS: There is moderate narrowing of the glenohumeral joint. There is a small osteophyte at the in ferior aspect of the humeral head. There is narrowing of the acromial humeral interval which can be seen with rotator cuff tear. Mild degenerative changes are seen at the acromioclavicular joint. The re is mild spurring at the lateral aspect of the acromion. SOFT TISSUE: Normal. IMPRESSION: 1. Moderate degenerative changes seen at the right shoulder as described above. 2. Superior subluxation of the humeral head relative to the glenoid which can be seen with rotator cu ff tear. Follow-up as clinically appropriate. This may include MRI of the shoulder. DATA REPOSITORY: RADIATION DOSE DELIVERED:
--- NOTE | 2024-03-01 09:16 | DI.RAD_ITS ---
Exam(s) XR SHOULDER LT COMPLETE 2+V EXAM: XR SHOULDER LT COMPLETE 2+V CLINICAL HISTORY: BILATERAL SHOULDER PAIN. TECHNIQUE: 2D digital imaging was performed of the left shoulder. Two images were obtained. Axilla ry and Grashey views were obtained. COMPARISON: No exams were available for comparison FINDINGS: BONES: No acute fracture is present. No bony destructive lesion is seen. JOINTS: No dislocation present. There are marked arthritic changes of the glenohumeral joint with los s of the joint space. There is flattening of the articular surfaces. There is a osteophytes seen at the inferior aspect of the humeral head. Sclerosis is seen along the joint surfaces. There are mil d degenerative changes seen at the acromioclavicular joint. SOFT TISSUE: Normal. IMPRESSION: Marked arthrosis of the glenohumeral joint. DATA REPOSITORY: RADIATION DOSE DELIVERED:
== END 2024-03-01 15:30 | disposition home or self-care (01) ==
LOC: DIORS 15:30
PROVIDERS: PCP Family Medicine; Referring Provider Family Medicine; Visit Provider Student in an Organized Health Care Education/Training Program
DX: M19.012 Primary osteoarthritis, left shoulder
CPT/HCPCS: 99214; 73030

== ENCOUNTER 2024-04-25 15:15 | Outpatient (CLI) | payer MEDICARE, BC, SELFPAY ==
[2024-04-25 13:27] LABS: Calculated LDL 71 mg/dL (<100); Cholesterol 150 mg/dL (<200); HDL Cholesterol 68 mg/dL (40-60); Triglyceride 58 mg/dL (<150)
== END 2024-04-25 15:16 | disposition home or self-care (01) ==
PROVIDERS: PCP Family Medicine; Visit Provider Internal Medicine Cardiovascular Disease
DX: I25.10 Atherosclerotic heart disease of native coronary artery without angina pectoris (principal)
CPT/HCPCS: 36415; 80061

== ENCOUNTER 2024-06-14 04:32 | Outpatient (CLI) | payer MEDICARE, BC, SELFPAY ==
[2024-06-14 18:43] LABS: PSA, Diagnostic 12.3 ng/mL (<=6.5)
[2024-06-21 10:07] LABS: Misc Referral (MAYO) See Comments
== END 2024-06-14 04:33 | disposition home or self-care (01) ==
LOC: LBO 04:32
PROVIDERS: PCP Family Medicine; Visit Provider Urology
DX: R97.20 Elevated prostate specific antigen [PSA] (principal)
CPT/HCPCS: 36415; 84153